=== PATIENT | female | born 1940 | race Caucasian/White ===

== ENCOUNTER 2017-07-11 21:01 | Emergency (ER) | payer OTHER ==
[~2017-07-11] VITALS: Ht 157.5 cm; Wt 82.2 kg
[2017-07-11 21:07] VITALS: TEMP 36.8; Ht 157.5 cm; Wt 82.2 kg
[2017-07-11] MEDS ORDERED: MULTTAB58 PO (21:13)
[2017-07-11] MEDS ORDERED: OXYCODONE/ACETAMINOPHEN 5-325 TAB PO STA (21:30)
[2017-07-11] MEDS ORDERED: IBUPROFEN 200 MG TAB PO STA (21:30)
--- NOTE | 2017-07-11 22:26 | EMERGENCY ROOM VISIT NOTE ---
History First contact with patient: 21:15 Chief Complaint: BACK PAIN Stated Complaint: LEFT BACK PAIN History of Present Illness The patient is a 76 year old female who presents to the Emergency Room with complaints of left posterior mid back pain that started when she woke up this morning. She describes it as a sharp, stabbing sensation that radiates into the armpit. She has tried icy hot, Tylenol and ibuprofen with minimal relief. She denies any shortness of breath. Coughing and sneezing make the pain worse. The pain is also worse with movement. She denies any numbness or tingling in her arms or legs. No abdominal pain. No urinary symptoms. Review of Systems 10 system review performed and negative unless noted in HPI or below Past Medical/Surgical History Hypertension Social History Smoking Status: Former Smoker Housing Status: lives with family Current/Historical Medications Scheduled Lidocaine (Lidocaine), 1 PATCH TD DAILY Multiple Vitamin (Multivitamin), 1 TAB PO DAILY Physical Exam Vital Signs Date Time Temp Pulse Resp B/P (MAP) Pulse Ox O2 Delivery O2 Flow Rate FiO2 07/12/17 00:48 75 18 150/79 94 07/12/17 00:16 70 21 92 07/12/17 00:00 127/63 07/11/17 23:46 69 22 135/76 90 07/11/17 23:45 71 18 154/74 92 Room Air 07/11/17 23:39 91 182/89 07/11/17 23:29 95 07/11/17 23:10 92 18 166/92 92 Room Air 07/11/17 21:07 36.8 101 20 203/94 95 Room Air Physical Exam GENERAL: 76-year-old female, in moderate discomfort,, SKIN: The skin was without rashes, erythema, edema, or bruising.. HEAD: Normocephalic atraumatic. NECK: . Cervical spine is nontender. HEART: Regular rate and rhythm without murmurs gallops or rubs. LUNGS: Clear to auscultation bilaterally without wheezes, rales or rhonchi. No accessory muscle use. THORAX: Tenderness to palpation over the left posterior lower ribs. No crepitus. ABDOMEN: Positive bowel sounds x 4.Soft, nontender, without organomegaly. No guarding or rebound tenderness. MUSCULOSKELETAL: No muscle atrophy, erythema, or edema noted. . Strength 5/5 throughout. NEURO: Patient was alert and oriented to person place and time. Normal sensation to touch. No focal neurological deficits. Medical Decision & Procedures ER Provider Diagnostic Interpretation: Thoracic spine x-rays IMPRESSION: No acute fracture or subluxation. The above report was generated using voice recognition software. It may contain grammatical, syntax or spelling errors. Electronically signed by: Rao Evans M.D. 07/11/2017 10:32 PM Rib x-rays IMPRESSION: 1. No acute process of the chest. 2. No acute displaced rib fracture or pneumothorax identified. The above report was generated using voice recognition software. It may contain grammatical, syntax or spelling errors. Electronically signed by: Rao Evans M.D. 07/11/2017 10:30 PM Dictated Date/Time: 07/11/2017 10:27 PM The status of this report is Signed. Draft = Not yet reviewed or approved by Radiologist. Signed = Reviewed and approved by Radiologist. Laboratory Results 07/11/17 23:32 Test 07/11/17 22:50 07/11/17 23:32 Urine Color YELLOW Urine Appearance CLOUDY (CLEAR) Urine pH 6.5 (4.5-7.5) Urine Specific [place] 1.023 (1.000-1.030) Urine Protein NEG (NEG) Urine Glucose (UA) NEG (NEG) Urine Ketones NEG (NEG) Urine Occult Blood NEG (NEG) Urine Nitrite NEG (NEG) Urine Bilirubin NEG (NEG) Urine Urobilinogen NEG (NEG) Urine Leukocyte Esterase MODERATE (NEG) Urine WBC (Auto) 10-30 /hpf (0-5) Urine RBC (Auto) 0-4 /hpf (0-4) Urine Hyaline Casts (Auto) 0 /lpf (0-5) Urine Epithelial Cells (Auto) >30 /lpf (0-5) Urine Bacteria (Auto) NEG (NEG) Anion Gap 7.0 mmol/L (3-11) Est Creatinine Clear Calc Drug Dose 52.0 ml/min Estimated GFR () 71.5 Estimated GFR (Non- 61.7 BUN/Creatinine Ratio 23.8 (10-20) Calcium Level 8.5 mg/dl (8.5-10.1) Total Bilirubin 0.5 mg/dl (0.2-1) Aspartate Amino Transf (AST/SGOT) 27 U/L (15-37) Alanine Aminotransferase (ALT/SGPT) 26 U/L (12-78) Alkaline Phosphatase 100 U/L (45-117) Troponin I < 0.015 ng/ml (0-0.045) Total Protein 7.5 gm/dl (6.4-8.2) Albumin 3.1 gm/dl (3.4-5.0) Globulin 4.4 gm/dl (2.5-4.0) Albumin/Globulin Ratio 0.7 (0.9-2) Medications Administered Medications (Trade) Dose Ordered Sig/Amparo Route Start Time Stop Time Status Last Admin Dose Admin Oxycodone/ Acetaminophen (Percocet 5-325mg Tab) 1 tab NOW STAT PO 07/11/17 21:30 07/11/17 21:40 DC 07/11/17 21:39 1 TAB Ibuprofen (Advil Tab) 400 mg NOW STAT PO 07/11/17 21:30 07/11/17 21:40 DC 07/11/17 21:39 400 MG Lidocaine (Lidoderm Patch 5%) 1 patch ONE STAT TD 07/11/17 22:39 07/11/17 22:41 DC 07/11/17 22:59 1 PATCH Metoprolol Tartrate (Lopressor Iv) 5 mg NOW STAT IV 07/11/17 23:34 07/11/17 23:35 DC 07/11/17 23:39 5 MG Sodium Chloride 500 ml @ 999 mls/hr Q31M STAT IV 07/12/17 00:15 07/12/17 00:45 DC 07/12/17 00:15 999 MLS/HR ECG Per My Interpretation Indication: other Rate (beats per minute): 98 Rhythm: normal sinus Comparison ECG Date: no prior available ED Course The patient was seen and examined She was medicated with 1 Percocet and ibuprofen 400 mg Imaging was performed and reviewed The patient was reassessed. She was more comfortable. Case was discussed with my supervising physician A saline lock was established, labs were drawn Patient was put on a monitor. An EKG was performed. The patient was given 1 dose of Lopressor as her blood pressure was elevated Upon reevaluation, she continues to rest comfortably. The pain has much improved. Her blood pressure was much improved, however the patient felt slightly dizzy. She was given 500 cc of normal saline. Upon reevaluation, she denies any dizziness or lightheadedness. Her pain continues to be improved. Blood pressure stable. We discussed her workup. She voiced understanding, was comfortable being discharged home. Discharge instructions were reviewed, and she was discharged in good condition Medical Decision Differential diagnosis: Rib fracture, rib contusion, pneumothorax, herpes zoster , radiculopathy, splenic injury, cardiac ischemia, pulmonary embolus, pneumonia This patient is a 76-year-old female that presents to the emergency department complaining of left posterior rib pain that started when she got up this morning. No known injury. On exam, she was exquisitely tender over the musculature inferior to her scapula. She did not have any rash to suggest herpes zoster. She did not have any tenderness in her upper abdomen to suggest splenic injury. X-rays did not reveal any rib fractures, pneumothorax or pneumonia. An EKG was performed. No acute ischemic findings were noted. The patient has significant relief with pain medication in the emergency department. I believe this pain is likely musculoskeletal. The patient recently relocated back to the area and is out of her blood pressure medication. The patient was treated with Lopressor in the emergency department. Her blood pressure significantly improved, however she felt slightly lightheaded. for this reason, she will not be given a prescription for any blood pressure medication. The patient was given some normal saline and felt much better. She will follow-up with a primary care physician this week for further evaluation of her pain and blood pressure. The patient had 10- 30 WBCs in her urine, however she did not have any symptoms. A urine culture was sent. I will hold off on antibiotics.. She will be given a short course of lidocaine patches. She and her daughter agree to return immediately to the emergency department with any new or concerning symptoms This chart was completed in part utilizing [employer] Speech Voice Recognition software. Attempts were made to minimize the grammatical errors, random word insertions, pronoun errors and incomplete sentences. Any formal questions or concerns about the content, text or information contained within the body of this dictation should be directly addressed to the provider for clarification. Blood Pressure Screening Patient's blood pressure: Elevated blood pressure Blood pressure disposition: Referred to PCP Impression Primary Impression: Back pain Departure Information Dispostion Home / Self-Care Condition GOOD Prescriptions Lidocaine (LIDOCAINE) 5 % Pad 1 PATCH TD DAILY for Pain, #1 PATCH Prov: Mignon Rausch PA-C 07/12/17 Referrals No Doctor, Assigned (PCP) Patient Instructions My [facility] Additional Instructions You have been evaluated in the emergency department for upper back pain. No significant abnormalities were noted on the x-rays or blood work. Your blood pressure was significantly elevated. Please follow-up with a primary care physician this week Ibuprofen 400 mg every 8 hours Please apply lidocaine patch to the area once daily as needed for pain. Please do not hesitate to return to the emergency department with any new, worsening or concerning symptoms It was a pleasure participating in your care today
--- NOTE | 2017-07-11 22:31 | DIAGNOSTIC IMAGING REPORT ---
L RIBS UNILATERAL WITH PA CHEST HISTORY: 76 years-old Female L posterior rib pain wrapping anteriorly acute left-sided rib pain status post trauma COMPARISON: Thoracic spine radiographs of same day TECHNIQUE: PA view of the chest with 5 views of the left ribs FINDINGS: Cardiomediastinal and hilar silhouettes are within normal limits. Atherosclerosis of the aorta. No pneumothorax, pleural effusion, focal airspace consolidation or overt pulmonary edema. Minimal subsegmental left basilar opacities suggest atelectasis. Degenerative changes of the shoulders and spine. Bones are mildly demineralized which limits evaluation for acute nondisplaced fracture. No acute displaced rib fracture is identified. IMPRESSION: 1. No acute process of the chest. 2. No acute displaced rib fracture or pneumothorax identified. The above report was generated using voice recognition software. It may contain grammatical, syntax or spelling errors. Electronically signed by: Rao Evans M.D. 07/11/2017 10:30 PM Dictated Date/Time: 07/11/2017 10:27 PM
--- NOTE | 2017-07-11 22:33 | DIAGNOSTIC IMAGING REPORT ---
THORACIC SPINE 3 VIEWS ROUTINE HISTORY: 76 years-old Female BACK PAIN acute mid thoracic spine pain COMPARISON: Chest and rib radiographs of same day TECHNIQUE: 3 views of the thoracic spine FINDINGS: The bones are mildly demineralized which limits evaluation for acute nondisplaced fracture. No acute fracture or subluxation. No compression deformity. Mild multilevel endplate spurring and intervertebral disc space narrowing. Atherosclerosis of the aorta. Imaged lung haddad appear clear. Mild levoscoliosis of the mid thoracic spine. Healed remote fracture of the posterior right sixth rib. IMPRESSION: No acute fracture or subluxation. The above report was generated using voice recognition software. It may contain grammatical, syntax or spelling errors. Electronically signed by: Rao Evans M.D. 07/11/2017 10:32 PM Dictated Date/Time: 07/11/2017 10:30 PM
[2017-07-11] MEDS ORDERED: LIDODERM (LIDOCAINE) PATCH 5% TD STA (22:39)
[2017-07-11] MEDS ORDERED: METOPROLOL TARTRATE 1 MG/ML VIAL IV STA (23:34)
[2017-07-12 00:01] LABS: ALBUMIN 3.1 gm/dl (3.4-5.0); ALT/SGPT 26 U/L (12-78); AST/SGOT 27 U/L (15-37); BLOOD UREA NITROGEN 21 mg/dl (7-18); CALCIUM 8.5 mg/dl (8.5-10.1); CARBON DIOXIDE 27 mmol/L (21-32); GLUCOSE 123 mg/dl (70-99); SODIUM 141 mmol/L (136-145)
[2017-07-12] MEDS ORDERED: LIDO1PAD2 TD (00:01)
[2017-07-12 00:06] LABS: ALKALINE PHOSPHATASE 100 U/L (45-117); TOTAL PROTEIN 7.5 gm/dl (6.4-8.2)
[2017-07-12] MEDS ORDERED: SODIUM CHLORIDE 0.9% 500ML 500 ML IV STA (00:15)
[2017-07-12 00:48] VITALS: BP 150/79; PULSE 75; O2SAT 94
--- NOTE | 2017-07-12 15:26 | Pharmacy Progress Note ---
ED Pharmacist Progress Note Date of Service: July 12, 2017. Received call from [facility] regarding prescription that was received for #1 Lidocaine Pad. Told them I would clarify with Mignon Rausch PA-C when she got in at 1500. Clarified with Mignon who wanted #14 5% lidocaine patches but said they could dispense #1 box if they could not be split up. Called [facility] back and clarified 5% lidocaine patches to dispense 14, unless box could not be broken then dispense 1 box. Pharmacy will dispense 1 box.
== END 2017-07-12 00:50 | disposition home or self-care (01) ==
LOC: C.EDB 21:04
DX: M54.9 Dorsalgia, unspecified (principal); I10 Essential (primary) hypertension; Z87.891 Personal history of nicotine dependence; Z79.899 Other long term (current) drug therapy

== ENCOUNTER 2017-10-22 17:10 | Emergency (ER) | payer OTHER ==
[~2017-10-22] VITALS: Ht 154.9 cm; Wt 79.2 kg
[~2017-10-22 17:10] MED LIST: LIDO1PAD2 TD; MULTTAB58 PO
[2017-10-22 17:13] VITALS: TEMP 36.9
[2017-10-22] MEDS ORDERED: HYDROCHLOROTHIAZIDE 25 MG TAB PO STA (17:51)
[2017-10-22] MEDS ORDERED: AMLODIPINE BESYLATE 5 MG TAB PO ONE (18:00)
[2017-10-22 18:20] VITALS: Ht 154.9 cm; Wt 79.2 kg
[2017-10-22] MEDS ORDERED: CHOL1000 PO (18:45)
[2017-10-22] MEDS ORDERED: MULT-730 PO (18:45)
[2017-10-22 18:53] LABS: BASO % 0.2 %; BASO ABS # 0.02 K/uL (0-0.2); EOS % 0.7 %; EOS ABS # 0.06 K/uL (0-0.5); HEMATOCRIT 47.1 % (37-47); HEMOGLOBIN 15.5 g/dL (12.0-16.0); IG# 0.03 K/uL (0.00-0.02); LYMPH % 16.8 %; LYMPH ABS # 1.47 K/uL (1.2-3.4); MEAN CELL VOLUME 86.6 fL (80-100); MEAN CORPUSCULAR HEMOGLOBIN 28.5 pg (25-34); MEAN CORPUSCULAR HGB CONC 32.9 g/dl (32-36); MEAN PLATELET VOLUME 10.1 fL (7.4-10.4); MONO % 8.1 %; MONO ABS # 0.71 K/uL (0.11-0.59); NEUT % 73.9 %; NEUT ABS # 6.45 K/uL (1.4-6.5); PLATELET COUNT 198 K/uL (130-400); RED CELL DISTRIBUTION WIDTH CV 13.4 % (11.5-14.5); RED CELL DISTRIBUTION WIDTH SD 42.2 fL (36.4-46.3); WHITE BLOOD COUNT 8.74 K/uL (4.8-10.8)
[2017-10-22 19:00] LABS: PTT PATIENT 25.7 SECONDS (21.0-31.0)
[2017-10-22 19:22] LABS: ALBUMIN 3.5 gm/dl (3.4-5.0); ALKALINE PHOSPHATASE 81 U/L (45-117); ALT/SGPT 29 U/L (12-78); AST/SGOT 33 U/L (15-37); BLOOD UREA NITROGEN 13 mg/dl (7-18); CALCIUM 9.6 mg/dl (8.5-10.1); CARBON DIOXIDE 28 mmol/L (21-32); CREATININE 0.91 mg/dl (0.60-1.20); GLUCOSE 97 mg/dl (70-99); POTASSIUM 4.1 mmol/L (3.5-5.1); SODIUM 137 mmol/L (136-145); TOTAL PROTEIN 8.8 gm/dl (6.4-8.2)
--- NOTE | 2017-10-22 19:43 | DIAGNOSTIC IMAGING REPORT ---
CHEST ONE VIEW PORTABLE CLINICAL HISTORY: EVALUATE ALTERED MENTAL STATUS/WEAKNESS COMPARISON STUDY: Chest radiograph July 11, 2017. FINDINGS: There is no pneumothorax or pleural effusion. Mild cardiomegaly is noted. There is no evidence for overt pulmonary edema. There is no consolidation to suggest pneumonia. The appearance of the chest is unchanged. Old right eighth rib fracture is noted. IMPRESSION: No acute cardiopulmonary findings. Electronically signed by: Vic Auguste M.D. 10/22/2017 7:42 PM Dictated Date/Time: 10/22/2017 7:41 PM
--- NOTE | 2017-10-22 19:50 | EMERGENCY ROOM VISIT NOTE ---
History Report prepared by Bren: Anusha Thakkar Under the Supervision of: Fely GiangO. First contact with patient: 17:46 Chief Complaint: HYPERTENSION Stated Complaint: HIGH BP History of Present Illness The patient is a 77 year old female who presents to the Emergency Room with complaints of an episode of hypertension that onset today. The patient notes that she went for a walk today and when she got home she noticed that her feet and legs were swollen. She notes that she elevated them to attempt to reduce the swelling. Per daughter, the patient's blood pressure at home was 198/104. The patient complains of an increase in urinary symptoms. The patient notes that she has a history of hypertension. The patient denies a history of diabetes , hyperlipidemia, and surgery. She notes that she has a family history of uterine cancer. The patient notes that she is a former smoker. Source of History: patient Onset: today Position: leg (bilateral) Quality: other (swelling) Timing: other (episode) Modifying Factors (Relieving): elevation Associated Symptoms: + urinary symptoms Note: The patient complains of swelling in her legs. Review of Systems See HPI for pertinent positives & negatives. A total of 10 systems reviewed and were otherwise negative. Past Medical & Surgical Medical Problems: (1) Hypertension Social History Smoking Status: Never Smoker Housing Status: lives with family Current/Historical Medications Scheduled Amlodipine (Norvasc), 10 MG PO DAILY Cholecalciferol (Vitamin D3), 1,000 INTER.UNIT PO DAILY Hydrochlorothiazide (Hctz), 1 TAB PO DAILY Multiple Vitamins W/ Minerals (Alive Womens 50+), 1 TAB PO DAILY Allergies Coded Allergies: No Known Allergies (Unverified , 07/11/17) Physical Exam Vital Signs Date Time Temp Pulse Resp B/P (MAP) Pulse Ox O2 Delivery O2 Flow Rate FiO2 10/22/17 20:31 83 19 144/80 92 Room Air 10/22/17 20:00 82 19 154/88 97 Nasal Cannula 2.0 10/22/17 19:30 81 20 162/85 97 Nasal Cannula 2.0 10/22/17 19:09 83 20 197/83 97 Nasal Cannula 2.0 10/22/17 18:00 84 20 92 Nasal Cannula 2.0 10/22/17 17:36 95 10/22/17 17:30 20 170/107 89 Room Air 10/22/17 17:13 36.9 106 18 188/90 95 Room Air Physical Exam GENERAL: Patient is awake, alert, and in no acute distress. Patient is resting comfortably and showing no signs of anxiety EYES: The conjunctivae are clear. The pupils are round and reactive. EARS, NOSE, MOUTH AND THROAT: The nose is without any evidence of any deformity. Mucous membranes are moist. Tongue is midline NECK: The neck is nontender and supple. RESPIRATORY: Normal respiratory effort is noted. There is no evidence of wheezing rhonchi or rales to auscultation. CARDIOVASCULAR: Regular rate and rhythm noted. There no murmurs rubs or gallops normal S1 normal S2 GASTROINTESTINAL: The abdomen is soft. Bowel sounds are present in all quadrants. Abdomen is nontender. MUSCULOSKELETAL/EXTREMITIES: There is no evidence of gross deformity. Full range of motion is noted in the hips and shoulders. SKIN: There is no obvious evidence of any rash. There are no petechiae, pallor or cyanosis noted. NEUROLOGIC: Patient is awake alert and oriented x3. Medical Decision & Procedures ER Provider Diagnostic Interpretation: Radiology results as stated below per my review and radiologist interpretation: CHEST ONE VIEW PORTABLE CLINICAL HISTORY: EVALUATE ALTERED MENTAL STATUS/WEAKNESS COMPARISON STUDY: Chest radiograph July 11, 2017. FINDINGS: There is no pneumothorax or pleural effusion. Mild cardiomegaly is noted. There is no evidence for overt pulmonary edema. There is no consolidation to suggest pneumonia. The appearance of the chest is unchanged. Old right eighth rib fracture is noted. IMPRESSION: No acute cardiopulmonary findings. Electronically signed by: Vic Auguste M.D. 10/22/2017 7:42 PM Dictated Date/Time: 10/22/2017 7:41 PM Laboratory Results 10/22/17 18:34 Red Blood Count 5.44, Mean Corpuscular Volume 86.6, Mean Corpuscular Hemoglobin 28.5, Mean Corpuscular Hemoglobin Concent 32.9, Mean Platelet Volume 10.1, Neutrophils (%) (Auto) 73.9, Lymphocytes (%) (Auto) 16.8, Monocytes (%) (Auto) 8.1, Eosinophils (%) (Auto) 0.7, Basophils (%) (Auto) 0.2, Neutrophils # (Auto) 6.45, Lymphocytes # (Auto) 1.47, Monocytes # (Auto) 0.71, Eosinophils # (Auto) 0.06, Basophils # (Auto) 0.02 10/22/17 18:31 Test 10/22/17 18:31 10/22/17 18:34 10/22/17 19:15 Anion Gap 8.0 mmol/L (3-11) Est Creatinine Clear Calc Drug Dose 48.5 ml/min Estimated GFR () 70.0 Estimated GFR (Non- 60.4 BUN/Creatinine Ratio 14.7 (10-20) Calcium Level 9.6 mg/dl (8.5-10.1) Magnesium Level 2.2 mg/dl (1.8-2.4) Total Bilirubin 0.6 mg/dl (0.2-1) Direct Bilirubin 0.1 mg/dl (0-0.2) Aspartate Amino Transf (AST/SGOT) 33 U/L (15-37) Alanine Aminotransferase (ALT/SGPT) 29 U/L (12-78) Alkaline Phosphatase 81 U/L (45-117) Troponin I < 0.015 ng/ml (0-0.045) Total Protein 8.8 gm/dl (6.4-8.2) Albumin 3.5 gm/dl (3.4-5.0) Thyroid Stimulating Hormone (TSH) 1.540 uIu/ml (0.300-4.500) White Blood Count 8.74 K/uL (4.8-10.8) Red Blood Count 5.44 M/uL (4.2-5.4) Hemoglobin 15.5 g/dL (12.0-16.0) Hematocrit 47.1 % (37-47) Mean Corpuscular Volume 86.6 fL (80-100) Mean Corpuscular Hemoglobin 28.5 pg (25-34) Mean Corpuscular Hemoglobin Concent 32.9 g/dl (32-36) Platelet Count 198 K/uL (130-400) Mean Platelet Volume 10.1 fL (7.4-10.4) Neutrophils (%) (Auto) 73.9 % Lymphocytes (%) (Auto) 16.8 % Monocytes (%) (Auto) 8.1 % Eosinophils (%) (Auto) 0.7 % Basophils (%) (Auto) 0.2 % Neutrophils # (Auto) 6.45 K/uL (1.4-6.5) Lymphocytes # (Auto) 1.47 K/uL (1.2-3.4) Monocytes # (Auto) 0.71 K/uL (0.11-0.59) Eosinophils # (Auto) 0.06 K/uL (0-0.5) Basophils # (Auto) 0.02 K/uL (0-0.2) RDW Standard Deviation 42.2 fL (36.4-46.3) RDW Coefficient of Variation 13.4 % (11.5-14.5) Immature Granulocyte % (Auto) 0.3 % Immature Granulocyte # (Auto) 0.03 K/uL (0.00-0.02) Prothrombin Time 10.1 SECONDS (9.0-12.0) Prothromb Time International Ratio 1.0 (0.9-1.1) Activated Partial Thromboplast Time 25.7 SECONDS (21.0-31.0) Partial Thromboplastin Ratio 1.0 Urine Color YELLOW Urine Appearance CLEAR (CLEAR) Urine pH 8.5 (4.5-7.5) Urine Specific [place] 1.009 (1.000-1.030) Urine Protein NEG (NEG) Urine Glucose (UA) NEG (NEG) Urine Ketones NEG (NEG) Urine Occult Blood NEG (NEG) Urine Nitrite NEG (NEG) Urine Bilirubin NEG (NEG) Urine Urobilinogen NEG (NEG) Urine Leukocyte Esterase SMALL (NEG) Urine WBC (Auto) 5-10 /hpf (0-5) Urine RBC (Auto) 0-4 /hpf (0-4) Urine Hyaline Casts (Auto) 0 /lpf (0-5) Urine Epithelial Cells (Auto) 0-5 /lpf (0-5) Urine Bacteria (Auto) NEG (NEG) Laboratory results per my review. Medications Administered Medications (Trade) Dose Ordered Sig/Amparo Route Start Time Stop Time Status Last Admin Dose Admin Amlodipine Besylate (Norvasc Tab) 10 mg NOW ONCE PO 10/22/17 18:00 10/22/17 18:01 DC 10/22/17 18:04 10 MG Hydrochlorothiazide (Hydrochlorothiazide Tab) 25 mg NOW STAT PO 10/22/17 17:51 10/22/17 17:53 DC 10/22/17 18:04 25 MG ECG Per My Interpretation Indication: other (hypertention) Rate (beats per minute): 94 Rhythm: normal sinus Findings: no ectopy, other (No ST Segment elevation) Change: no significant change Change: No significant change from 07/11/17. ED Course 1750: The patient was evaluated in room B9. A complete history and physical examination were performed. 2036: Upon reevaluation, the patient is resting comfortably. 2049: Upon reevaluation, the patient is resting comfortably. I discussed the results and treatment plan with her. She verbalized agreement of the treatment plan. She was discharged home. Medical Decision Prior records/ancillary studies reviewed regarding the history above. Triage Nursing notes reviewed. Additional history obtained from the family. The patient's history was concerning for hypertension. Differential diagnosis: Etiologies such as benign hypertension, hypertensive emergency, cardiovascular pathology, pheochromocytoma, electrolyte abnormality, renal disease, endorgan damage, as well as others were entertained. The patient is a 77-year-old female who presented to the emergency department for hypertension. The patient had asymptomatic hypertension but has been noticing that her blood pressure has been very elevated recently. The patient stopped taking her blood pressure medication in the past but wishes to restart her medications. She was treated with her previous medications that she was on as an outpatient. I discussed the patient's laboratory and radiographic studies with her. She does have a follow-up appointment with a primary care provider in the near future. She was encouraged to continue all medications as prescribed and follow-up with the primary care physician. I also recommended that she return to the emergency department immediately if symptoms change worsen or the need arises. I discussed patient's laboratory and radiographic studies with her. Medication Reconcilliation Current Medication List: was personally reviewed by me Blood Pressure Screening Patient's blood pressure: Normal blood pressure Impression Primary Impression: Hypertension Scribe Attestation The scribe's documentation has been prepared under my direction and personally reviewed by me in its entirety. I confirm that the note above accurately reflects all work, treatment, procedures, and medical decision making performed by me. Departure Information Dispostion Home / Self-Care Prescriptions Hydrochlorothiazide (HCTZ) 25 Mg Tab 1 TAB PO DAILY for 30 Days, #30 TAB Prov: Frank Lopez, DO 10/22/17 Amlodipine (Norvasc) 10 Mg Tab 10 MG PO DAILY, #30 TAB Prov: Frank Lopez, DO 10/22/17 Referrals No Doctor, Assigned (PCP) Forms HOME CARE DOCUMENTATION FORM, IMPORTANT VISIT INFORMATION, WORK / SCHOOL INSTRUCTIONS Patient Instructions My [facility] Additional Instructions Continue all medications as prescribed. Rest and avoid any strenuous activity. Follow-up with your family doctor as scheduled. Return the emergency department immediately if symptoms change worsen or the need arises.
[2017-10-22 20:31] VITALS: BP 144/80; PULSE 83; O2SAT 92
[2017-10-22] MEDS ORDERED: AMLO10TA3 PO (20:39)
[2017-10-22] MEDS ORDERED: HYDR25TA4 PO (20:39)
== END 2017-10-22 20:50 | disposition home or self-care (01) ==
LOC: C.EDB 17:11
DX: I10 Essential (primary) hypertension (principal)

== ENCOUNTER 2020-07-26 18:32 | Inpatient (IN) ==
[2020-07-26] MEDS ORDERED: SODIUM CHLORIDE 0.9% 1000ML 1,000 ML IV STA ×2 (18:52→19:05)
[2020-07-26] MEDS ORDERED: SODIUM CHLORIDE 0.9% 1000ML 500 ML IV ONE (19:05)
[2020-07-26] MEDS ORDERED: CALCIUM GLUCONATE 10% 10 ML VIAL IV STA (19:19)
[2020-07-26] MEDS ORDERED: DEXTROSE 50% 50 ML SYRINGE IV ONE (19:19)
[2020-07-26] MEDS ORDERED: NovoLIN-R INSULIN PER UNIT CHARGE IV STA (19:19)
[2020-07-26] MEDS ORDERED: SODIUM BICARB 8.4% INJ 50 MEQ/50 ML SYR IV STA (19:20)
--- NOTE | 2020-07-26 19:28 | Emergency Department Note ---
Impression & Plan KIANNA (acute kidney injury), Acute hyperkalemia, Acute dehydration, Cough ED Provider Note INFORMANT: Patient ED PROVIDER(S): Adan Dillard MD CHIEF COMPLAINT: Abnormal labs PLAN: Disposition: Admitted Condition: Good Outpatient prescription management: none Referral: None MEDICAL DECISION MAKING: Patient presented from the outpatient provider due to abnormal labs. She had hyperkalemia found on her blood work as well as KIANNA. She admits to not eating and drinking well. She has had a cough. She was hydrated with normal saline. Given the high potassium and KIANNA she also received calcium, insulin, dextrose and bicarbonate. Twelve-lead ECG showed sinus rhythm with mild peaked T morphology. Consultation was made with the [facility] service. Patient was evaluated in the ER admitted for further management. Triage Nursing notes reviewed and agree them. Vital Signs: reviewed and remarkable for no significant abnormalities Outpatient laboratory testing reviewed and she had hyperkalemia with a potassium of 6.2. She also was found to have acute kidney injury. Differential diagnosis: Infection, dehydration, metabolic abnormality, hypo/hyperglycemia, electrolyte disturbance, anemia, hypoxia, cardiac sources, intracerebral event, toxicologic, neurologic, as well as other pathologies. Diagnostics interpreted by me: ECG: Twelve-lead ECG reveals sinus rhythm at 98 bpm. Wandering baseline in V6. T wave morphology is slightly peaked but not tall. There is no ST elevation or depression. No PVCs. Normal QRS and axis. Cardiac Monitoring: Cardiac monitoring ordered by me: The patient was placed on continuous cardiac monitoring and observed. It revealed a normal sinus rhythm at 95 beats per minute without ectopy or evidence of dysrhythmia. Imaging studies: Chest x-ray. Findings: A chest x-ray was performed and revealed no pneumothorax, effusion, infiltrate, pulmonary edema, free air under the diaphragm, or wide mediastinum. Impression: No acute disease. HPI: The patient is a 80 year old female who presents to the Emergency Room with complaints of abnormal labs. This started today and was found at an urgent care appointment. She noted a cough. She was prescribed prednisone and a z-pack. Family notes she has had decreased PO intake. The patient also notes the following associated symptoms, weakness. Current pain is rated as 0/10. Pt denies LOC, headache, fevers, chills, diaphoresis, visual changes, neck pain, chest pain, breathing difficulties, nausea, vomiting, abdominal pain, back pain, melena, hematochezia, urinary symptoms, numbness, lymphadenopathy, rash, or other complaints. ROS: See above HPI for pertinent positives & negatives. A total of 10 systems reviewed and were otherwise negative. PAST MEDICAL HISTORY:See Below , HTN PAST SURGICAL HISTORY:See Below, FAMILY HISTORY:See Below SOCIAL HISTORY:See Below, retired, HOME MEDICATIONS:See Below ALLERGIES:See Below VITALS:See Below PHYSICAL EXAMINATION: GENERAL: Awake,tired-appearing, in no distress HENT: Normocephalic, atraumatic. Oropharynx unremarkable for dry mucous membranes. EYES: Normal conjunctiva. Sclera non-icteric. NECK: Inspection normal. Non-tender. Supple. No nuchal rigidity. FROM. No masses. RESPIRATORY: Clear to auscultation. No wheezes. No rales. Normal respiratory effort. CARDIAC: Normal rate. Normal rhythm. No murmurs. No rubs. Extremities warm and well perfused. Pulses equal. No JVD. GI: Soft, non-distended. No tenderness to palpation. No rebound or guarding. No masses. RECTAL: Deferred. MUSCULOSKELETAL: Atraumatic. Chest examination reveals no tenderness. There is no CVA tenderness to palpation. No joint edema. LOWER EXTREMITIES: Calves are equal size bilaterally and non-tender. No edema. No discoloration. NEURO: Normal sensorium. No sensory or motor deficits noted. SKIN: No rash or jaundice noted. Adan Dillard MD Past Med/Surg History Medical History Hyperlipidemia started pt on 10mg atorva s/p last BW Hypertension Obesity (BMI 30.0-34.9) Surgical History History of tonsillectomy History of wisdom tooth extraction Family History Brother Alcohol abuse Sister Hypertension Breast cancer Colorectal cancer Mother Ovarian cancer Denies family history of Prostate cancer Myocardial infarction Social History Smoking Status: Former smoker Tobacco Type: Cigarettes Hx Alcohol Use: Yes ("once in awhile") Alcohol type: wine and hard liquor Hx Substance Use: No Preferred Language: Somali Manager Water Required: No Beliefs That Will Affect Care: None marital status: Current Living Situation: Family Current Living Situation Comment: Lives with daughter current occupational status: retired Feels Safe at Home: Yes Safety Concerns: Feels Safe At This Time caffeine: Yes Dental Care, Regularly: No Physical Activity Frequency: 1-2 Times per Week Seatbelt Use: always Sunscreen Use: No Assistive Devices: Glasses Allergies Allergies Allergy/AdvReac Type Severity Reaction Status Date / Time No Known Allergies Allergy Unverified 07/26/20 19:32 Home Meds Home Medications Medication Instructions Recorded Confirmed cholecalciferol (vitamin D3) 25 1,000 units PO DAILY 01/02/19 07/26/20 mcg (1,000 unit) capsule multivitamin 1 tab PO DAILY 01/02/19 07/26/20 albuterol sulfate 2 puff INHALATION QID PRN 07/26/20 07/26/20 azithromycin 250 mg PO UD 07/26/20 07/26/20 fluticasone propion-salmeterol 1 ea INHALATION BID 07/26/20 07/26/20 hydrochlorothiazide 25 mg PO DAILY 07/26/20 07/26/20 prednisone 20 mg PO UD 07/26/20 07/26/20 Previous Rx's Medication Instructions Recorded lisinopril 20 mg tablet 20 mg PO DAILY #90 tab 02/19/20 Results & Data (ED) Vital Signs Vital Signs - 24 hr 07/26/20 18:34 07/26/20 19:11 07/26/20 19:13 Temperature 36.6 C Temperature Source Skin Pulse Rate 106 H 99 H 94 H Pulse Rate from SpO2 Sensor Respiratory Rate 20 23 18 Respiratory Effort / Characteristics Non-Labored Respiratory Depth Normal Blood Pressure 124/77 139/85 Blood Pressure Mean 92 103 Pulse Oximetry 91 95 95 Oxygen Delivery Method Room Air Room Air Room Air Sepsis Recent Fever Within 48 Hours No Sepsis New/Unexplained Change in Mental Status N/A Sepsis Action Taken by Nursing No Action Required 07/26/20 19:30 07/26/20 19:31 07/26/20 19:51 Temperature Temperature Source Pulse Rate 100 H 94 H 105 H Pulse Rate from SpO2 Sensor Respiratory Rate 20 20 20 Respiratory Effort / Characteristics Respiratory Depth Blood Pressure 143/66 H Blood Pressure Mean 91 Pulse Oximetry 94 94 94 Oxygen Delivery Method Room Air Room Air Room Air Sepsis Recent Fever Within 48 Hours Sepsis New/Unexplained Change in Mental Status Sepsis Action Taken by Nursing 07/26/20 20:00 07/26/20 20:01 07/26/20 20:51 Temperature Temperature Source Pulse Rate 103 H 103 H 103 H Pulse Rate from SpO2 Sensor 103 H 102 H 104 H Respiratory Rate 23 23 17 Respiratory Effort / Characteristics Respiratory Depth Blood Pressure 136/67 136/117 H Blood Pressure Mean 90 123 Pulse Oximetry 95 95 95 Oxygen Delivery Method Room Air Room Air Room Air Sepsis Recent Fever Within 48 Hours Sepsis New/Unexplained Change in Mental Status Sepsis Action Taken by Nursing 07/26/20 21:00 07/26/20 21:01 07/26/20 21:30 Temperature Temperature Source Pulse Rate 96 H 100 H 92 H Pulse Rate from SpO2 Sensor 99 H 98 H 95 H Respiratory Rate 20 22 13 Respiratory Effort / Characteristics Respiratory Depth Blood Pressure 136/99 143/76 H Blood Pressure Mean 111 98 Pulse Oximetry 93 94 92 Oxygen Delivery Method Room Air Room Air Room Air Sepsis Recent Fever Within 48 Hours Sepsis New/Unexplained Change in Mental Status Sepsis Action Taken by Nursing Laboratory Data Result diagrams: 07/26/20 19:09 07/26/20 22:32 Lab Results 07/26/20 07/26/20 07/26/20 Range/Units 19:09 19:09 19:09 WBC 7.24 (4.8-10.8) K/uL RBC 4.74 (4.2-5.4) M/uL Hgb 14.4 (12.0-16.0) g/dL Hct 41.4 (37-47) % MCV 87.3 (80-100) fL MCH 30.4 (25-34) pg MCHC 34.8 (32-36) g/dL RDW Std Deviation 44.1 (36.4-46.3) fL RDW Coeff of Ezio 14.1 (11.5-14.5) % Plt Count 369 (130-400) K/uL MPV 10.2 (7.4-10.4) fL Immature Gran % (Auto) 1.2 % Neut % (Auto) 92.0 % Lymph % (Auto) 4.4 % Dunn % (Auto) 2.3 % Eos % (Auto) 0.0 % Baso % (Auto) 0.1 % Neut # (Auto) 6.65 H (1.4-6.5) K/uL Lymph # (Auto) 0.32 L (1.2-3.4) K/uL Dunn # (Auto) 0.17 (0.11-0.59) K/uL Eos # (Auto) 0.00 (0-0.5) K/uL Baso # (Auto) 0.01 (0-0.2) K/uL Immature Gran # (Auto) 0.09 H (0.00-0.02) K/uL Sodium 135 L (136-145) mmol/L Potassium 6.2 H* (3.5-5.1) mmol/L Chloride 107 (98-107) mmol/L Carbon Dioxide 19 L (21-32) mmol/L Anion Gap 9.0 (3-11) BUN 113 H (7-18) mg/dl Creatinine 2.11 H (0.6-1.2) mg/dl Est Cr Clr Drug Dosing 19.4 ml/min Est GFR ( Amer) 24.8 ml/min Est GFR (Non-Af Amer) 21.4 ml/min BUN/Creatinine Ratio 53.6 H (10-20) Glucose 154 H (70-99) mg/dl POC Glucose (70-99) mg/dl Calcium 9.3 (8.5-10.1) mg/dl Total Bilirubin 0.7 (0.2-1) mg/dl AST 18 (15-37) U/L ALT 25 (12-78) U/L Alkaline Phosphatase 70 (45-117) U/L Total Protein 9.0 H (6.4-8.2) gm/dl Albumin 3.3 L (3.4-5.0) gm/dl Globulin 5.7 H (2.5-4.0) gm/dl Albumin/Globulin Ratio 0.6 L (0.9-2) Urine Color Dark Yellow Urine Appearance Cloudy A (Clear) Urine pH 5.0 (4.5-7.5) Ur Specific [place] 1.021 (1.000-1.030) Urine Protein Negative (Negative) Urine Glucose (UA) Negative (Negative) Urine Ketones Trace H (Negative) Urine Blood Negative (Negative) Urine Nitrite Negative (Negative) Urine Bilirubin Negative (Negative) Urine Urobilinogen Negative (Negative) Ur Leukocyte Esterase 2+ H (Negative) Urine WBC (Auto) >30 H (0-5) /hpf Urine RBC (Auto) 0-4 (0-4) /hpf U Hyaline Cast (Auto) >30 H (0-5) /lpf U Epithel Cells (Auto) >30 H (0-5) /lpf Urine Bacteria (Auto) Negative (Negative) Granular Casts 1-5 H (0) /lpf Ur Random Creatinine mg/dl Ur Random Sodium mmol/L Ur Random Urea Nitrogn mg/dl COVID-19 Eval Order SARS-CoV-2 (PCR) (Negative) 07/26/20 07/26/20 07/26/20 Range/Units 19:09 19:09 19:15 WBC (4.8-10.8) K/uL RBC (4.2-5.4) M/uL Hgb (12.0-16.0) g/dL Hct (37-47) % MCV (80-100) fL MCH (25-34) pg MCHC (32-36) g/dL RDW Std Deviation (36.4-46.3) fL RDW Coeff of Ezio (11.5-14.5) % Plt Count (130-400) K/uL MPV (7.4-10.4) fL Immature Gran % (Auto) % Neut % (Auto) % Lymph % (Auto) % Dunn % (Auto) % Eos % (Auto) % Baso % (Auto) % Neut # (Auto) (1.4-6.5) K/uL Lymph # (Auto) (1.2-3.4) K/uL Dunn # (Auto) (0.11-0.59) K/uL Eos # (Auto) (0-0.5) K/uL Baso # (Auto) (0-0.2) K/uL Immature Gran # (Auto) (0.00-0.02) K/uL Sodium (136-145) mmol/L Potassium (3.5-5.1) mmol/L Chloride (98-107) mmol/L Carbon Dioxide (21-32) mmol/L Anion Gap (3-11) BUN (7-18) mg/dl Creatinine (0.6-1.2) mg/dl Est Cr Clr Drug Dosing ml/min Est GFR ( Amer) ml/min Est GFR (Non-Af Amer) ml/min BUN/Creatinine Ratio (10-20) Glucose (70-99) mg/dl POC Glucose (70-99) mg/dl Calcium (8.5-10.1) mg/dl Total Bilirubin (0.2-1) mg/dl AST (15-37) U/L ALT (12-78) U/L Alkaline Phosphatase (45-117) U/L Total Protein (6.4-8.2) gm/dl Albumin (3.4-5.0) gm/dl Globulin (2.5-4.0) gm/dl Albumin/Globulin Ratio (0.9-2) Urine Color Urine Appearance (Clear) Urine pH (4.5-7.5) Ur Specific [place] (1.000-1.030) Urine Protein (Negative) Urine Glucose (UA) (Negative) Urine Ketones (Negative) Urine Blood (Negative) Urine Nitrite (Negative) Urine Bilirubin (Negative) Urine Urobilinogen (Negative) Ur Leukocyte Esterase (Negative) Urine WBC (Auto) (0-5) /hpf Urine RBC (Auto) (0-4) /hpf U Hyaline Cast (Auto) (0-5) /lpf U Epithel Cells (Auto) (0-5) /lpf Urine Bacteria (Auto) (Negative) Granular Casts (0) /lpf Ur Random Creatinine 254.0 mg/dl Ur Random Sodium 16 mmol/L Ur Random Urea Nitrogn 893 mg/dl COVID-19 Eval Order Covid19 at [facility] SARS-CoV-2 (PCR) (Negative) 07/26/20 07/26/20 Range/Units 19:15 20:48 WBC (4.8-10.8) K/uL RBC (4.2-5.4) M/uL Hgb (12.0-16.0) g/dL Hct (37-47) % MCV (80-100) fL MCH (25-34) pg MCHC (32-36) g/dL RDW Std Deviation (36.4-46.3) fL RDW Coeff of Ezio (11.5-14.5) % Plt Count (130-400) K/uL MPV (7.4-10.4) fL Immature Gran % (Auto) % Neut % (Auto) % Lymph % (Auto) % Dunn % (Auto) % Eos % (Auto) % Baso % (Auto) % Neut # (Auto) (1.4-6.5) K/uL Lymph # (Auto) (1.2-3.4) K/uL Dunn # (Auto) (0.11-0.59) K/uL Eos # (Auto) (0-0.5) K/uL Baso # (Auto) (0-0.2) K/uL Immature Gran # (Auto) (0.00-0.02) K/uL Sodium (136-145) mmol/L Potassium (3.5-5.1) mmol/L Chloride (98-107) mmol/L Carbon Dioxide (21-32) mmol/L Anion Gap (3-11) BUN (7-18) mg/dl Creatinine (0.6-1.2) mg/dl Est Cr Clr Drug Dosing ml/min Est GFR ( Amer) ml/min Est GFR (Non-Af Amer) ml/min BUN/Creatinine Ratio (10-20) Glucose (70-99) mg/dl POC Glucose 133 H (70-99) mg/dl Calcium (8.5-10.1) mg/dl Total Bilirubin (0.2-1) mg/dl AST (15-37) U/L ALT (12-78) U/L Alkaline Phosphatase (45-117) U/L Total Protein (6.4-8.2) gm/dl Albumin (3.4-5.0) gm/dl Globulin (2.5-4.0) gm/dl Albumin/Globulin Ratio (0.9-2) Urine Color Urine Appearance (Clear) Urine pH (4.5-7.5) Ur Specific [place] (1.000-1.030) Urine Protein (Negative) Urine Glucose (UA) (Negative) Urine Ketones (Negative) Urine Blood (Negative) Urine Nitrite (Negative) Urine Bilirubin (Negative) Urine Urobilinogen (Negative) Ur Leukocyte Esterase (Negative) Urine WBC (Auto) (0-5) /hpf Urine RBC (Auto) (0-4) /hpf U Hyaline Cast (Auto) (0-5) /lpf U Epithel Cells (Auto) (0-5) /lpf Urine Bacteria (Auto) (Negative) Granular Casts (0) /lpf Ur Random Creatinine mg/dl Ur Random Sodium mmol/L Ur Random Urea Nitrogn mg/dl COVID-19 Eval Order SARS-CoV-2 (PCR) NEGATIVE (Negative) Administered Medications Heparin Sodium (Porcine) (Heparin Sod 5,000 Unit/0.5 Ml Vial) 5,000 units SQ Q8 BILL Stop: 08/25/20 22:51 Last Admin: 07/26/20 23:48 Dose: 5,000 units Documented by: [id number] Sodium Chloride (Nss 1000ml) 1,000 mls @ 80 mls/hr IV .[id number] BILL Stop: 08/25/20 22:51 Last Admin: 07/26/20 23:22 Dose: 80 mls/hr Documented by: [id number] Discontinued Medications Calcium Gluconate (Calcium Gluconate 10% 10 Ml Vial) 1,000 mg IV NOW STA Stop: 07/26/20 19:20 Last Admin: 07/26/20 20:45 Dose: Not Given Documented by: [id number] Dextrose (Dextrose 50% 50 Ml Syringe) 25 ml IV NOW ONE Stop: 07/26/20 19:20 Last Admin: 07/26/20 19:41 Dose: 25 ml Documented by: [id number] Sodium Chloride (Nss 1000ml) 1,000 mls @ 125 mls/hr IV .Q8H STA Stop: 07/27/20 02:51 Last Admin: 07/26/20 19:21 Dose: Not Given Documented by: [id number] Sodium Chloride (Nss 1000ml) 500 mls @ 999 mls/hr IV .Q31M ONE Stop: 07/26/20 19:35 Last Infusion: 07/26/20 19:51 Dose: 0 mls/hr Documented by: [id number] Admin: 07/26/20 19:21 Dose: 999 mls/hr Documented by: [id number] Sodium Chloride (Nss 1000ml) 1,000 mls @ 125 mls/hr IV .Q8H STA Stop: 07/27/20 03:04 Last Infusion: 07/26/20 23:41 Dose: 0 mls/hr Documented by: [id number] Admin: 07/26/20 19:50 Dose: 125 mls/hr Documented by: [id number] Calcium Gluconate 1,000 mg/ (Sodium Chloride) 60 mls @ 240 mls/hr IV NOW STA Stop: 07/26/20 20:40 Last Infusion: 07/26/20 21:00 Dose: 0 mls/hr Documented by: [id number] Admin: 07/26/20 20:44 Dose: 240 mls/hr Documented by: [id number] Insulin Human Regular (Novolin-R Insulin Per Unit Charge) 5 units IV NOW STA Stop: 07/26/20 19:20 Last Admin: 07/26/20 19:41 Dose: 5 units Documented by: [id number] Cosigned by: [id number] Methylprednisolone (Methylprednisolone 125 Mg/2 Ml Vial) 40 mg IV NOW STA Stop: 07/26/20 22:58 Last Admin: 07/26/20 23:48 Dose: 40 mg Documented by: [id number] Sodium Bicarbonate (Sodium Bicarb 8.4% Inj 50 Meq/50 Ml Syr) 50 meq IV NOW STA Stop: 07/26/20 19:21 Last Admin: 07/26/20 19:42 Dose: 50 meq Documented by: [id number] Imaging Data Radiologist's Impression: Chest X-Ray 07/26/20 19:18 XR chest 1V portable HISTORY: cough COMPARISON: Chest 10/22/2017. FINDINGS: Mild interstitial thickening at the lung bases, unchanged. This is likely chronic. No new focal lung consolidations to suggest pneumonia. No evidence for pulmonary edema. Suspect mild emphysema. The heart is normal in size. There are old, healed right-sided rib fractures. No pleural effusions. No pneumothorax. IMPRESSION: No significant change compared to the prior study. No acute process. ACT 112: Negative or not required by law. Electronically signed by: Young Schulte M.D. 07/26/2020 7:47 PM Abdomen/Pelvis CT 07/26/20 19:[address] WITHOUT CONTRAST CT DOSE: 470.11 mGy.cm HISTORY: Acute kidney injury. TECHNIQUE: Multiaxial CT images of the abdomen and pelvis were performed without contrast. A dose lowering technique was utilized adhering to the principles of ALARA. COMPARISON STUDY: None. FINDINGS: There is a 2.2 cm bleb at the right lung base. No pneumoperitoneum. No pneumatosis. No suspicious lytic or blastic osseous lesions. There is a 4 cm duodenal diverticulum. There are few punctate gallstones. No gallbladder wall thickening. The liver demonstrates a subcentimeter hypodense lesion centrally. This is technically too small to characterize. The unenhanced spleen, adrenal glands, and pancreas are unremarkable. Moderate calcified plaque within the abdominal aorta. 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 There is a 3 mm nonobstructing stone within the upper pole of the right kidney. No left renal calculi. No ureteral calculi. No hydronephrosis. The bladder is unremarkable. There is a bilobed 8 cm hypodense lesion within the upper pole the left kidney and a 1 cm hypodense lesion within the upper pole the right kidney. These are incompletely characterized on this noncontrast study but statistically represent cysts. The uterus and right adnexa are within normal limits. There is a 7.8 cm cystic lesion within the left ovary. This appears to contain a thin septation a few punctate calcifications. This is indeterminate but is considered pathologic in a postmenopausal female and could represent an ovarian neoplasm. There is suboptimal evaluation for bowel pathology due to the lack of intravenous and oral contrast. However, there is no definite bowel wall thickening or obstruction. Normal appendix. Colonic diverticulosis. No evidence for acute diverticulitis. IMPRESSION: 1. Right-sided nephrolithiasis. No ureteral stones. No hydronephrosis. 2. No definite bowel wall thickening or obstruction. 3. Colonic diverticulosis. 4. A 7.8 cm left ovarian cystic lesion. This contains a thin septation and a few punctate calcifications. This is nonspecific but could be pathologic in a postmenopausal female. Follow-up nonemergent gynecologic consultation recommended to exclude the possibility of an ovarian neoplasm. 5. Cholelithiasis. No gallbladder wall thickening. ACT 112: Negative or not required by law. Electronically signed by: Young Schulte M.D. 07/26/2020 8:49 PM Discharge Plan Visit Data Chief Complaint: Abnormal Labs/Diagnostic Testing Stated Complaint: POTASSIUM TOO HIGH, ABNORMAL LAB ED Provider: Adan Dillard Discharge Problem: KIANNA (acute kidney injury), Acute hyperkalemia, Acute dehydration, Cough Patient Disposition: Admitted As Inpatient Discharge Instructions Interventions: ED Discharge Assessment Last Done: 07/26/20 22:28
[2020-07-26 19:47] LABS: Appearance Urine Cloudy (Clear); Bacteria Urine Automated Negative (Negative); Bilirubin Urine Negative (Negative); Blood Urine Negative (Negative); Color Urine Dark Yellow; Epithelial Cell Urine Auto >30 /lpf (0-5); Glucose Urine UA Negative (Negative); Ketones Urine Trace (Negative); Leukocyte Esterase Urine 2+ (Negative); Nitrite Urine Negative (Negative); Protein Urine Negative (Negative); RBC Urine Automated 0-4 /hpf (0-4); Specific Gravity Urine 1.021 (1.000-1.030); Urobilinogen Urine Negative (Negative); WBC Urine Automated >30 /hpf (0-5)
--- NOTE | 2020-07-26 19:48 | XRay Report ---
XR chest 1V portable HISTORY: cough COMPARISON: Chest 10/22/2017. FINDINGS: Mild interstitial thickening at the lung bases, unchanged. This is likely chronic. No new f ocal lung consolidations to suggest pneumonia. No evidence for pulmonary edema. Suspect mild emphysem a. The heart is normal in size. There are old, healed right-sided rib fractures. No pleural effusions . No pneumothorax. IMPRESSION: No significant change compared to the prior study. No acute process. ACT 112: Negative or not required by law. Electronically signed by: Young Schulte M.D. 07/26/2020 7:47 PM
[2020-07-26 20:13] LABS: Albumin Globulin Ratio 0.6 (0.9-2); Albumin Level 3.3 gm/dl (3.4-5.0); BUN Creatinine Ratio 53.6 (10-20); Bilirubin,Total 0.7 mg/dl (0.2-1); Calcium 9.3 mg/dl (8.5-10.1); Creatinine Clr Calc Pharmacy 19.4 ml/min; Est GFR (African American) 24.8 ml/min; Est GFR (Non-African American) 21.4 ml/min; Globulin 5.7 gm/dl (2.5-4.0); Potassium 6.2 mmol/L (3.5-5.1)
--- NOTE | 2020-07-26 20:15 | History & Physical Report ---
Date of Service July 26, 2020 Assessment & Plan (1) Person under investigation for COVID-19: As per HPI - Isolate per COVID precautions, retest as applicable (2) COPD (chronic obstructive pulmonary disease): COPD vs. Asthma/allergic - WBC 7, increase in sputum production, increase in dyspnea, no opacities or effusions - Continue Azithromycin 250 mg daily- She already took her 500 dose today - Methylpred- 40mg q6- if patient dyspnea or hypoxia gets worse can increase - Albuterol/Combivent nebs scheduled q6 for 24 hours - Albuterol inhalers PRN- she may need spacer- reports difficulty in using her inhaler secondary to seal with no upper teeth (3) Acute hyperkalemia: Potassium at 6.2 - ECG with very mild t-wave change - NS 1 liter in the EMD - 5 units regular insulin and D50%, calcium gluconate IV, Sodium Bicarb given in the EMD - Patient is making urine so with IV fluids she will diurese more- BMP now to check K She is not diabetic- however will continue to check glucose ACHS notify if > 160 Controlling glucose will also move her K intracellularly. A1C in morning (4) KIANNA (acute kidney injury): KIANNA likely pre-renal secondary to decreased oral intake- BUN 113, DRAG SAWYER 2.11 (baseline DRAG SAWYER 0.9-1.15) - JERSON, UUN, and UUC pending - Urine with contaminant appearance- will resend clean catch on next sample - Hold lisinopril and HCTZ- patient already took this morning - FEUREA 6.5% (5) Hypertension: As above- if urine indices improve following hydration can resume - IV labetalol if needed overnight (6) Kidney stone: Incidental finding on abomen CT scan- non-obstucting 3mm right stone - asymptomatic at this time - follow (7) Ovarian cyst: incidental finding at 7.8 cm - follow up on outpatient (8) Cholelithiasis: incidental finding on CT scan, no pain asymptomatic History of Present Illness Primary Care Provider: Nicolette Childs MD 80 YOF, comes to the emergency room today after going to urgent care today for cough, back, pain and feeling ill. Patient has a past medical history of COPD(no PFT's on file) but previous smoker, HTN. As above she was seen at [facility] today and started on Azithromycin and prednisone and given Advair inhaler. She was noted at this time to have elevated potassium and acute kidney injury. For her cough, she has had this since end of June and her mucous is thick white and occasional yellow. Her is admitted for COVID-19 and is on day 13 of his illness, they stay in different areas of the house, they also live with their daughter and her and they have reportedly tested negative. She will be admitted for IV hydration for her renal function and potassium, follow her respiratory illness. Will place as PUI. She had a test performed at urgent care today as well. Allergies Allergy/AdvReac Type Severity Reaction Status Date / Time No Known Allergies Allergy Unverified 07/26/20 19:32 Home Medications Medication Instructions Recorded Confirmed Type cholecalciferol (vitamin D3) 25 1,000 units PO DAILY 01/02/19 07/26/20 History mcg (1,000 unit) capsule multivitamin 1 tab PO DAILY 01/02/19 07/26/20 History lisinopril 20 mg tablet 20 mg PO DAILY #90 tab 02/19/20 07/26/20 Rx albuterol sulfate 2 puff INHALATION QID PRN 07/26/20 07/26/20 History azithromycin 250 mg PO UD 07/26/20 07/26/20 History fluticasone propion-salmeterol 1 ea INHALATION BID 07/26/20 07/26/20 History hydrochlorothiazide 25 mg PO DAILY 07/26/20 07/26/20 History prednisone 20 mg PO UD 07/26/20 07/26/20 History Past Med/Surg History Medical History Hyperlipidemia started pt on 10mg atorva s/p last BW Hypertension Obesity (BMI 30.0-34.9) Surgical History History of tonsillectomy History of wisdom tooth extraction Family History Brother Alcohol abuse Sister Hypertension Breast cancer Colorectal cancer Mother Ovarian cancer Denies family history of Prostate cancer Myocardial infarction Social History Smoking Status: Former smoker Tobacco Type: Cigarettes Hx Alcohol Use: Yes ("once in awhile") Alcohol type: wine and hard liquor Hx Substance Use: No Preferred Language: [employer] [employer] Required: No Beliefs That Will Affect Care: None marital status: Current Living Situation: Family Current Living Situation Comment: Lives with daughter current occupational status: retired Feels Safe at Home: Yes Safety Concerns: Feels Safe At This Time caffeine: Yes Dental Care, Regularly: No Physical Activity Frequency: 1-2 Times per Week Seatbelt Use: always Sunscreen Use: No Assistive Devices: None Review of Systems Review of Systems: REVIEW OF SYSTEMS: Constitutional: No fever, sweats or chills Eyes: No diplopia, no worsening or blurred vision ENT: normal hearing, no trouble swallowing Respiratory: (+) cough, sputum, on exertion, NO dyspnea at rest Cardiovascular: No chest pain, tightness or palpitations Abdomen: (+) decreased appetitie, pain, nausea, vomiting, diarrhea or constipation Musculoskeletal: No joint pain, calf pain, swelling Neurologic: No weakness, numbness/tingling, or balance problems Psychiatric: No anxiety or depression Skin: No rash or itch Physical Exam Physical Exam: PHYSICAL EXAM: General: awake, alert, no apparent distress Head: Normocephalic, atraumatic ENT: PERRL, EOMI, no pharyngeal exudate, mucous membranes dry Neuro: AAO x 3, speech clear and appropriate, strength intact bilaterally 5/5, sensation intact and equal all extremities and dermatomes, no pronator drift Chest: equal rise and fall of the chest, no accessory muscle use, no heaves or thrills, diminished breath sounds with scattered rhonchi, on room air, Cardiac: Regular rate and rhythm, telemetry reviewed, skin warm dry, cap refill <3 seconds, peripheral pulses +2 no JVD, no murmur, no edema GI: NABS x 4 quadrants, soft, nontender to palpation, no rebound, guarding or tenderness : Spontaneously voiding, no pain, no CVA tenderness Extremities: Normal inspection, no peripheral edema or erythema, calfs nontender to palpation Psych: Normal mood and affect Skin: no rash or erythema Results & Data Results & Data ([facility]) Vital Signs (Past 12 Hours) Vital Signs Temp Pulse Resp BP Pulse Ox 05/21/21 19:51 105 H 20 94 05/21/21 19:31 94 H 20 94 07/26/20 19:30 100 H 20 143/66 H 94 07/26/20 19:13 94 H 18 95 07/26/20 19:11 99 H 23 139/85 95 07/26/20 18:34 36.6 C 106 H 20 124/77 91 Laboratory Results Abnormal lab results 07/26/20 07/26/20 07/26/20 Range/Units 19:09 19:09 19:09 Neut # (Auto) 6.65 H (1.4-6.5) K/uL Lymph # (Auto) 0.32 L (1.2-3.4) K/uL Immature Gran # (Auto) 0.09 H (0.00-0.02) K/uL Sodium 135 L (136-145) mmol/L Potassium 6.2 H* (3.5-5.1) mmol/L Carbon Dioxide 19 L (21-32) mmol/L BUN 113 H (7-18) mg/dl Creatinine 2.11 H (0.6-1.2) mg/dl BUN/Creatinine Ratio 53.6 H (10-20) Glucose 154 H (70-99) mg/dl POC Glucose (70-99) mg/dl Total Protein 9.0 H (6.4-8.2) gm/dl Albumin 3.3 L (3.4-5.0) gm/dl Globulin 5.7 H (2.5-4.0) gm/dl Albumin/Globulin Ratio 0.6 L (0.9-2) Urine Appearance Cloudy A (Clear) Urine Ketones Trace H (Negative) Ur Leukocyte Esterase 2+ H (Negative) Urine WBC (Auto) >30 H (0-5) /hpf U Hyaline Cast (Auto) >30 H (0-5) /lpf U Epithel Cells (Auto) >30 H (0-5) /lpf Granular Casts 1-5 H (0) /lpf 07/26/20 Range/Units 20:48 Neut # (Auto) (1.4-6.5) K/uL Lymph # (Auto) (1.2-3.4) K/uL Immature Gran # (Auto) (0.00-0.02) K/uL Sodium (136-145) mmol/L Potassium (3.5-5.1) mmol/L Carbon Dioxide (21-32) mmol/L BUN (7-18) mg/dl Creatinine (0.6-1.2) mg/dl BUN/Creatinine Ratio (10-20) Glucose (70-99) mg/dl POC Glucose 133 H (70-99) mg/dl Total Protein (6.4-8.2) gm/dl Albumin (3.4-5.0) gm/dl Globulin (2.5-4.0) gm/dl Albumin/Globulin Ratio (0.9-2) Urine Appearance (Clear) Urine Ketones (Negative) Ur Leukocyte Esterase (Negative) Urine WBC (Auto) (0-5) /hpf U Hyaline Cast (Auto) (0-5) /lpf U Epithel Cells (Auto) (0-5) /lpf Granular Casts (0) /lpf Diagnostic Findings Chest X-Ray 07/26/20 19:18 XR chest 1V portable HISTORY: cough COMPARISON: Chest 10/22/2017. FINDINGS: Mild interstitial thickening at the lung bases, unchanged. This is likely chronic. No new focal lung consolidations to suggest pneumonia. No evidence for pulmonary edema. Suspect mild emphysema. The heart is normal in size. There are old, healed right-sided rib fractures. No pleural effusions. No pneumothorax. IMPRESSION: No significant change compared to the prior study. No acute process. ACT 112: Negative or not required by law. Electronically signed by: Young Schulte M.D. 07/26/2020 7:47 PM Abdomen/Pelvis CT 07/26/20 19:[address] WITHOUT CONTRAST CT DOSE: 470.11 mGy.cm HISTORY: Acute kidney injury. TECHNIQUE: Multiaxial CT images of the abdomen and pelvis were performed without contrast. A dose lowering technique was utilized adhering to the principles of ALARA. COMPARISON STUDY: None. FINDINGS: There is a 2.2 cm bleb at the right lung base. No pneumoperitoneum. No pneumatosis. No suspicious lytic or blastic osseous lesions. There is a 4 cm duodenal diverticulum. There are few punctate gallstones. No gallbladder wall thickening. The liver demonstrates a subcentimeter hypodense lesion centrally. This is technically too small to characterize. The unenhanced spleen, adrenal glands, and pancreas are unremarkable. Moderate calcified plaque within the abdominal aorta. 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 There is a 3 mm nonobstructing stone within the upper pole of the right kidney. No left renal calculi. No ureteral calculi. No hydronephrosis. The bladder is unremarkable. There is a bilobed 8 cm hypodense lesion within the upper pole the left kidney and a 1 cm hypodense lesion within the upper pole the right kidney. These are incompletely characterized on this noncontrast study but statistically represent cysts. The uterus and right adnexa are within normal limits. There is a 7.8 cm cystic lesion within the left ovary. This appears to contain a thin septation a few punctate calcifications. This is indeterminate but is considered pathologic in a postmenopausal female and could represent an ovarian neoplasm. There is suboptimal evaluation for bowel pathology due to the lack of intravenous and oral contrast. However, there is no definite bowel wall thickening or obstruction. Normal appendix. Colonic diverticulosis. No evidence for acute diverticulitis. IMPRESSION: 1. Right-sided nephrolithiasis. No ureteral stones. No hydronephrosis. 2. No definite bowel wall thickening or obstruction. 3. Colonic diverticulosis. 4. A 7.8 cm left ovarian cystic lesion. This contains a thin septation and a few punctate calcifications. This is nonspecific but could be pathologic in a postmenopausal female. Follow-up nonemergent gynecologic consultation recommend ed to exclude the possibility of an ovarian neoplasm. 5. Cholelithiasis. No gallbladder wall thickening. Electronically signed by: Young Schulte M.D. 07/26/2020 8:49 PM Medications Administered Sodium Chloride (Nss 1000ml) 1,000 mls @ 125 mls/hr IV .Q8H STA Stop: 07/27/20 02:51 Last Admin: 07/26/20 19:21 Dose: Not Given Documented by: [id number] Sodium Chloride (Nss 1000ml) 1,000 mls @ 125 mls/hr IV .Q8H STA Stop: 07/27/20 03:04 Last Admin: 07/26/20 19:50 Dose: 125 mls/hr Documented by: [id number] Discontinued Medications Calcium Gluconate (Calcium Gluconate 10% 10 Ml Vial) 1,000 mg IV NOW STA Stop: 07/26/20 19:20 Last Admin: 07/26/20 20:45 Dose: Not Given Documented by: [id number] Dextrose (Dextrose 50% 50 Ml Syringe) 25 ml IV NOW ONE Stop: 07/26/20 19:20 Last Admin: 07/26/20 19:41 Dose: 25 ml Documented by: [id number] Sodium Chloride (Nss 1000ml) 500 mls @ 999 mls/hr IV .Q31M ONE Stop: 07/26/20 19:35 Last Infusion: 07/26/20 19:51 Dose: 0 mls/hr Documented by: [id number] Admin: 07/26/20 19:21 Dose: 999 mls/hr Documented by: [id number] Calcium Gluconate 1,000 mg/ (Sodium Chloride) 60 mls @ 240 mls/hr IV NOW STA Stop: 07/26/20 20:40 Last Infusion: 07/26/20 21:00 Dose: 0 mls/hr Documented by: [id number] Admin: 07/26/20 20:44 Dose: 240 mls/hr Documented by: [id number] Insulin Human Regular (Novolin-R Insulin Per Unit Charge) 5 units IV NOW STA Stop: 07/26/20 19:20 Last Admin: 07/26/20 19:41 Dose: 5 units Documented by: [id number] Cosigned by: [id number] Sodium Bicarbonate (Sodium Bicarb 8.4% Inj 50 Meq/50 Ml Syr) 50 meq IV NOW STA Stop: 07/26/20 19:21 Last Admin: 07/26/20 19:42 Dose: 50 meq Documented by: [id number] ECG Additional Comments: Sinus rhythm with occasional Premature ventricular complexes Otherwise normal ECG When compared with ECG of 22-OCT-2017 18:10, Code Status & VTE Plan Code Status CODE: FULL VTE: SCD's, Heparin VTE Prophylaxis Plan VTE Prophylaxis will be ordered: Yes Supervising Physician Co-Signing Physician Notes Attending addendum: I have physically seen this patient, have supervised the JHOAN's activities, and agree with the H&P unless as otherwise noted. Assessment and Plan: COPD exacerbation/possible COVID-19 infection- Duonebs every 6 hours while awake and every 2 hours when necessary. Methylprednisolone 40 mg IV every 6 hours Guaifenesin extended release 6 on milligrams p.o. twice daily Vitamin D 5000 international units p.o. daily Zinc sulfate turn 20 mg p.o. daily Repeat COVID-19 testing in a.m. in a.m., isolate for now Acute kidney injury/hyperkalemia- Creatinine 2.08, with baseline 0.9-1.15 Insulin with D50 as noted, calcium gluconate 1 g IV inserted bicarbonate given in the ED Continue with IV fluids. Recheck laboratories in a.m. Remaining orders and notations as noted PG Care Time/CCT Total # of Minutes Spent Total Time Spent with Patient: Total time spent is greater than 50% in coordination of care (as documented) at patient's floor/unit and/or counseling patient: Coding Level of Care Code 57377 Initial Inpt Care Lvl 3 Diagnoses Person under investigation for COVID-19 Z20.822 COPD (chronic obstructive pulmonary disease) J44.9 COPD type: unspecified COPD Acute hyperkalemia E87.5 KIANNA (acute kidney injury) N17.9 Hypertension I10 Hypertension type: essential hypertension Kidney stone N20.0 Ovarian cyst N83.209 Laterality: unspecified laterality Cholelithiasis K80.80 Biliary obstruction: without biliary obstruction Cholelithiasis location: other site (1) Ovarian cyst Laterality: unspecified laterality Qualified Code(s): N83.209 - Unspecified ovarian cyst, unspecified side (2) COPD (chronic obstructive pulmonary disease) COPD type: unspecified COPD Qualified Code(s): J44.9 - Chronic obstructive pulmonary disease, unspecified (3) Hypertension Hypertension type: essential hypertension Qualified Code(s): I10 - Essential (primary) hypertension (4) Cholelithiasis Biliary obstruction: without biliary obstruction Cholelithiasis location: other site Qualified Code(s): K80.80 - Other cholelithiasis without obstruction
[2020-07-26] MEDS ORDERED: CALCIUM GLUCONATE 10% 1,000 MG in SODIUM CHLORIDE 0.9% 50 ML IV STA (20:26)
[2020-07-26 20:41] LABS: Cast Urine Automated >30 /lpf (0-5)
--- NOTE | 2020-07-26 20:50 | CT Scan Report ---
ABDOMEN AND PELVIS CT WITHOUT CONTRAST CT DOSE: 470.11 mGy.cm HISTORY: Acute kidney injury. TECHNIQUE: Multiaxial CT images of the abdomen and pelvis were performed without contrast. A dose lo wering technique was utilized adhering to the principles of ALARA. COMPARISON STUDY: None. FINDINGS: There is a 2.2 cm bleb at the right lung base. No pneumoperitoneum. No pneumatosis. No susp icious lytic or blastic osseous lesions. There is a 4 cm duodenal diverticulum. There are few punctat e gallstones. No gallbladder wall thickening. The liver demonstrates a subcentimeter hypodense lesion centrally. This is technically too small to characterize. The unenhanced spleen, adrenal glands, and pancreas are unremarkable. Moderate calcified plaque within the abdominal aorta. Focal aneurysmal di latation at the infrarenal abdominal aorta on image 106 measuring 3 cm. There is a 3 mm nonobstructin g stone within the upper pole of the right kidney. No left renal calculi. No ureteral calculi. No hyd ronephrosis. The bladder is unremarkable. There is a bilobed 8 cm hypodense lesion within the upper p ole the left kidney and a 1 cm hypodense lesion within the upper pole the right kidney. These are inc ompletely characterized on this noncontrast study but statistically represent cysts. The uterus and r ight adnexa are within normal limits. There is a 7.8 cm cystic lesion within the left ovary. This andry ears to contain a thin septation a few punctate calcifications. This is indeterminate but is consider ed pathologic in a postmenopausal female and could represent an ovarian neoplasm. There is suboptimal evaluation for bowel pathology due to the lack of intravenous and oral contrast. However, there is n o definite bowel wall thickening or obstruction. Normal appendix. Colonic diverticulosis. No evidence for acute diverticulitis. IMPRESSION: 1. Right-sided nephrolithiasis. No ureteral stones. No hydronephrosis. 2. No definite bowel wall thickening or obstruction. 3. Colonic diverticulosis. 4. A 7.8 cm left ovarian cystic lesion. This contains a thin septation and a few punctate calcificati ons. This is nonspecific but could be pathologic in a postmenopausal female. Follow-up nonemergent gy necologic consultation recommended to exclude the possibility of an ovarian neoplasm. 5. Cholelithiasis. No gallbladder wall thickening. ACT 112: Negative or not required by law. Electronically signed by: Young Schulte M.D. 07/26/2020 8:49 PM
[2020-07-26 21:18] LABS: Basophils # (auto) 0.01 K/uL (0-0.2); Basophils % (auto) 0.1 %; Hematocrit (blood only) 41.4 % (37-47); Hemoglobin 14.4 g/dL (12.0-16.0); Immature Granulocytes # (auto) 0.09 K/uL (0.00-0.02); Immature Granulocytes % (auto) 1.2 %; Lymphocytes # (auto) 0.32 K/uL (1.2-3.4); Lymphocytes % (auto) 4.4 %; Mean Corpuscular Hemoglobin 30.4 pg (25-34); Mean Corpuscular Hgb Conc 34.8 g/dL (32-36); Mean Corpuscular Volume 87.3 fL (80-100); Mean Platelet Volume 10.2 fL (7.4-10.4); Monocytes # (auto) 0.17 K/uL (0.11-0.59); Monocytes % (auto) 2.3 %; Neutrophils # (auto) 6.65 K/uL (1.4-6.5); Platelet Count 369 K/uL (130-400); RDW Coefficient of Variation 14.1 % (11.5-14.5); RDW Standard Deviation 44.1 fL (36.4-46.3); Red Blood Count 4.74 M/uL (4.2-5.4); White Blood Count 7.24 K/uL (4.8-10.8)
[2020-07-26] MEDS ORDERED: ALBUTEROL HFA 8 GM INHALER INH PRN (22:52)
[2020-07-26] MEDS ORDERED: ONDANSETRON INJ 2 MG/ML 2 ML VIAL IV PRN (22:52)
[2020-07-26] MEDS ORDERED: POLYETHYLENE (MIRALAX) 17 GM PACK PO PRN (22:52)
[2020-07-26] MEDS ORDERED: methylPREDNISolone 125 MG/2 ML VIAL IV STA (22:57)
[2020-07-26 23:09] LABS: BUN Creatinine Ratio 57.7 (10-20); C Reactive Protein 0.55 mg/dl (0-0.29); Calcium 9.3 mg/dl (8.5-10.1); Est GFR (African American) 30.5 ml/min; Est GFR (Non-African American) 26.3 ml/min; Potassium 6.2 mmol/L (3.5-5.1)
[2020-07-26 23:13] LABS: Ferritin 595.3 ng/ml (8-388)
[2020-07-26] MEDS: SODIUM CHLORIDE 0.9% 1000ML 1,000 ML IV SCH (23:22)
[2020-07-26] MEDS: HEPARIN SOD 5,000 UNIT/0.5 ML VIAL SQ SCH (23:48)
[2020-07-27] MEDS: ACETAMINOPHEN 325 MG TAB PO PRN ×2 (00:28→07:58)
[2020-07-27] MEDS: ALBUT/IPRATROP 3MG/0.5MG NEB 3 ML VIAL NEB SCH ×2 (00:30→07:06)
[2020-07-27 00:38] LABS: Fibrinogen 386 mg/dl (184-400)
[2020-07-27] MEDS: HEPARIN SOD 5,000 UNIT/0.5 ML VIAL SQ SCH ×3 (05:33→21:00)
[2020-07-27] MEDS: methylPREDNISolone 40 MG in SYRINGE 0 ML IV SCH ×4 (05:33→22:57)
[2020-07-27 06:20] LABS: Appearance Urine Clear (Clear); Bilirubin Urine Negative (Negative); Blood Urine Negative (Negative); Color Urine Yellow; Glucose Urine UA Negative (Negative); Ketones Urine Negative (Negative); Leukocyte Esterase Urine Negative (Negative); Nitrite Urine Negative (Negative); Protein Urine Negative (Negative); Specific Gravity Urine 1.019 (1.000-1.030); Urobilinogen Urine Negative (Negative)
[2020-07-27 07:24] LABS: Hemoglobin 12.4 g/dL (12.0-16.0); Immature Granulocytes # (auto) 0.01 K/uL (0.00-0.02); Immature Granulocytes % (auto) 0.2 %; Lymphocytes # (auto) 0.32 K/uL (1.2-3.4); Lymphocytes % (auto) 6.6 %; Mean Corpuscular Hemoglobin 28.8 pg (25-34); Mean Corpuscular Hgb Conc 33.5 g/dL (32-36); Mean Platelet Volume 9.9 fL (7.4-10.4); Monocytes # (auto) 0.08 K/uL (0.11-0.59); Monocytes % (auto) 1.6 %; Neutrophils # (auto) 4.45 K/uL (1.4-6.5); Neutrophils % (auto) 91.6 %; Platelet Count 276 K/uL (130-400); RDW Coefficient of Variation 14.1 % (11.5-14.5); RDW Standard Deviation 44.1 fL (36.4-46.3); White Blood Count 4.86 K/uL (4.8-10.8)
[2020-07-27 07:44] LABS: Estimated Average Glucose 143 mg/dl; Hemoglobin A1C 6.6 % (4.5-5.6)
[2020-07-27 07:47] LABS: BUN Creatinine Ratio 57.4 (10-20); Calcium 9.3 mg/dl (8.5-10.1); Est GFR (African American) 32.9 ml/min; Est GFR (Non-African American) 28.4 ml/min; Magnesium 2.3 mg/dl (1.8-2.4); Potassium 5.5 mmol/L (3.5-5.1)
[2020-07-27] MEDS: AZITHROMYCIN 250 MG TAB PO SCH (07:50)
[2020-07-27] MEDS: FLUTICASONE/VILANTEROL 200/25MCG 14 PUFFS/INHALER INH SCH (07:50)
[2020-07-27] MEDS ORDERED: SODIUM POLYSTYRENE SULFONATE 15G/60ML SUSP PO STA (08:26)
[2020-07-27] MEDS: INSULIN GLARGINE SOLOSTAR 100 UNITS/ML 3 ML PEN SC SCH (09:02)
[2020-07-27] MEDS: SODIUM CHLORIDE 0.9% 1000ML 1,000 ML IV SCH (11:22)
[2020-07-27] MEDS: INSULIN ASPART 100 UNITS/ML 3 ML PEN SC SCH ×3 (11:31→20:58)
[2020-07-27] MEDS ORDERED: ALBUT/IPRATROP 3MG/0.5MG NEB 3 ML VIAL NEB PRN (12:30)
[2020-07-27] MEDS ORDERED: PANTOprazole 40 MG TAB PO STA (17:25)
--- NOTE | 2020-07-27 17:28 | Hospitalist Progress Note ---
Date of Service July 27, 2020 Assessment & Plan (1) COVID-19: Exact date of illness onset is uncertain. She reports being sick since late June. However, is hospitalized with COVID and his first symptoms were 10-14 days ago. Thus, her illness onset is more likely in the last 2 weeks. Labs look very acute - significant lymphopenia, elevated ferritin, etc. Her severe KIANNA with prerenal azotemia were likely from poor oral intake in the days leading up to presentation. Thus far she has no radiographic evidence of pneumonia. Her o2 sats are low-normal (89-92%). This is in setting of known COPD. However, she has had significant cough and other chest symptoms in the last 1-2 weeks. Using solumedrol for COPD exacerbation along with zithromax. Day #2 latter. She is diminished but doesn't have severe wheezing - thus, reduce solumedrol dosing to BID. Continue airborne isolation. (2) KIANNA (acute kidney injury): Improving with IV fluids. 2nd to poor oral intake from COVID-19 infection in the days leading up to admission. She had also been taking LOLY and HCTZ. HOLD LOLY. HOLD HCTZ. Continue IVF. BMP qam. (3) Acute hyperkalemia: 2nd to KIANNA with concomitant LOLY inhibitor use. Hyperkalemia improving but still not normal. Current level 5.5. Kayexalate 15gm x 1. Continue IV fluids. Repeat BMP am. (4) COPD (chronic obstructive pulmonary disease): with exacerbation. 2nd COVID-19. wean solumedrol to 40mg IV q12h from q6h dosing. add flutter valve. add incentive austen. continue home inhalers. If O2 sats are 90% or less add NC O2 to keep sats 90-92%. (5) Hypertension: BPs acceptable. Holding LOLY and HCTZ for now. (6) Kidney stone: Incidental finding on admission CT abd/pelvis. Non-obstructing 3mm right-sided stone. no Rx. (7) Ovarian cyst: Incidental finding on admission CT abd/pelvis. 7.8 cm on left. Will need follow up as outpatient with gynecology. Worrisome for ovarian ca. I spoke with pt's daughter and advised her of this cyst. (8) Cholelithiasis: Not symptomatic at this time. (9) Acute dehydration: Improving. Continue current IV fluids. BMP am. (10) Hyponatremia: Resolved. Hypovolemic hyponatremia. (11) Type 2 diabetes mellitus: a1c 6.6% consistent with early T2DM. Was not taking meds at home prior to admission. While hospitalized - basal-bolus insulin. Adjust as needed. (12) DVT prophylaxis: heparin 5000 TID left leg was scantly warm/erythematous on anterior sullivan thus, obtained dopplers of legs daughter updated by phone today will need PT, OT evals add PPI for GI prophylaxis Admission and Anticipated Discharge Date Admission Date: July 26, 2020 Subjective patient eating dinner during my visit. she reports cough of several weeks duration. she states "I've been sick since late June." c/o dyspnea on exertion. recent appetite and oral intake was very poor. sick with COVID; hospitalized at [facility] currently. she tested negative here yesterday, but she had visited a [facility] care locally and her test from 07/25 returned POSITIVE. patient denies loss of taste or smell. telemetry wnl since admission. Review of Systems Constitutional: + fatigue, + weakness and + anorexia (at home; appetite improved here ); no fever, no chills and no body aches Ear, Nose, Mouth, Throat: no nasal congestion Respiratory: + cough, + dyspnea on exertion and + sputum production Cardiovascular: + dyspnea on exertion; no chest pain and no edema Gastrointestinal: no abdominal pain, no nausea and no vomiting Physical Exam Constitutional: no acute distress and no altered mental status coughing ENMT: Mouth: + dry oral mucous membranes Respiratory: no respiratory distress very poor air movement all lung segments; hint of wheeze b/l; no obvious rales; no distress Cardiovascular: Rate/Rhythm: regular rate and regular rhythm (with extra beats) Heart Sounds: normal S1 and normal S2; no murmur Vessels: posterior tibial pulses present and dorsalis pedis pulses present; no JVD Extremities: no edema Gastrointestinal (Abdomen): normal bowel sounds, soft, nontender, no hepatosplenomegaly Musculoskeletal: Extremities: + clubbing Skin: tiny amount of faint, irregular erythema on distal left sullivan Psychiatric: Orientation: alert, oriented to person and oriented to place Results & Data Results & Data ([facility]) Vital Signs (Past 12 Hours) Vital Signs Temp Pulse Pulse Resp BP BP Pulse Ox 07/27/20 17:00 97 H 90 05/22/21 16:51 109 H 151/78 H 90 07/27/20 16:00 87 90 07/27/20 15:51 81 124/80 90 07/27/20 15:00 72 93 07/27/20 14:51 87 122/72 89 L 07/27/20 14:00 106 H 89 L 07/27/20 13:51 90 130/77 90 07/27/20 12:51 99 H 133/97 92 07/27/20 12:00 36.6 C 89 90 07/27/20 11:56 36.6 C 07/27/20 11:51 88 129/90 91 07/27/20 10:51 74 93/63 L 07/27/20 10:30 86 92 07/27/20 10:00 118 H 90 07/27/20 09:51 112 H 129/83 91 07/27/20 09:50 113 H 91 07/27/20 07:55 36.6 C 105 H 18 130/66 96 07/27/20 07:07 102 H 16 93 Laboratory Results Laboratory Results - last 24 hr 07/26/20 07/26/20 07/26/20 19:09 19:09 19:09 WBC 7.24 RBC 4.74 Hgb 14.4 Hct 41.4 MCV 87.3 MCH 30.4 MCHC 34.8 RDW Std Deviation 44.1 RDW Coeff of Ezio 14.1 Plt Count 369 MPV 10.2 Immature Gran % (Auto) 1.2 Neut % (Auto) 92.0 Lymph % (Auto) 4.4 Ciales % (Auto) 2.3 Eos % (Auto) 0.0 Baso % (Auto) 0.1 Neut # (Auto) 6.65 H Lymph # (Auto) 0.32 L Ciales # (Auto) 0.17 Eos # (Auto) 0.00 Baso # (Auto) 0.01 Immature Gran # (Auto) 0.09 H Fibrinogen Sodium 135 L Potassium 6.2 H* Chloride 107 Carbon Dioxide 19 L Anion Gap 9.0 BUN 113 H Creatinine 2.11 H Est Cr Clr Drug Dosing 19.4 Est GFR ( Amer) 24.8 Est GFR (Non-Af Amer) 21.4 BUN/Creatinine Ratio 53.6 H Glucose 154 H POC Glucose Estimat Average Glucose Hemoglobin A1c Calcium 9.3 Magnesium Ferritin Total Bilirubin 0.7 AST 18 ALT 25 Alkaline Phosphatase 70 C-Reactive Protein Total Protein 9.0 H Albumin 3.3 L Globulin 5.7 H Albumin/Globulin Ratio 0.6 L Specimen Hemolysis Urine Color Dark Yellow Urine Appearance Cloudy A Urine pH 5.0 Ur Specific Laurel 1.021 Urine Protein Negative Urine Glucose (UA) Negative Urine Ketones Trace H Urine Blood Negative Urine Nitrite Negative Urine Bilirubin Negative Urine Urobilinogen Negative Ur Leukocyte Esterase 2+ H Urine WBC (Auto) >30 H Urine RBC (Auto) 0-4 U Hyaline Cast (Auto) >30 H U Epithel Cells (Auto) >30 H Urine Bacteria (Auto) Negative Granular Casts 1-5 H Ur Random Creatinine Ur Random Sodium Ur Random Urea Nitrogn Nasal Screen MRSA (PCR) COVID-19 Eval Order SARS-CoV-2 (PCR) 07/26/20 07/26/20 07/26/20 19:09 19:09 19:15 WBC RBC Hgb Hct MCV MCH MCHC RDW Std Deviation RDW Coeff of Ezio Plt Count MPV Immature Gran % (Auto) Neut % (Auto) Lymph % (Auto) Ciales % (Auto) Eos % (Auto) Baso % (Auto) Neut # (Auto) Lymph # (Auto) Ciales # (Auto) Eos # (Auto) Baso # (Auto) Immature Gran # (Auto) Fibrinogen Sodium Potassium Chloride Carbon Dioxide Anion Gap BUN Creatinine Est Cr Clr Drug Dosing Est GFR ( Amer) Est GFR (Non-Af Amer) BUN/Creatinine Ratio Glucose POC Glucose Estimat Average Glucose Hemoglobin A1c Calcium Magnesium Ferritin Total Bilirubin AST ALT Alkaline Phosphatase C-Reactive Protein Total Protein Albumin Globulin Albumin/Globulin Ratio Specimen Hemolysis Urine Color Urine Appearance Urine pH Ur Specific Laurel Urine Protein Urine Glucose (UA) Urine Ketones Urine Blood Urine Nitrite Urine Bilirubin Urine Urobilinogen Ur Leukocyte Esterase Urine WBC (Auto) Urine RBC (Auto) U Hyaline Cast (Auto) U Epithel Cells (Auto) Urine Bacteria (Auto) Granular Casts Ur Random Creatinine 254.0 Ur Random Sodium 16 Ur Random Urea Nitrogn 893 Nasal Screen MRSA (PCR) COVID-19 Eval Order Covid19 at [facility] SARS-CoV-2 (PCR) 07/26/20 07/26/20 07/26/20 19:15 20:48 22:32 WBC RBC Hgb Hct MCV MCH MCHC RDW Std Deviation RDW Coeff of Ezio Plt Count MPV Immature Gran % (Auto) Neut % (Auto) Lymph % (Auto) Ciales % (Auto) Eos % (Auto) Baso % (Auto) Neut # (Auto) Lymph # (Auto) Ciales # (Auto) Eos # (Auto) Baso # (Auto) Immature Gran # (Auto) Fibrinogen Sodium 136 Potassium 6.2 H* Chloride 108 H Carbon Dioxide 22 Anion Gap 5.0 BUN 103 H Creatinine 1.78 H D Est Cr Clr Drug Dosing 23.0 Est GFR ( Amer) 30.5 Est GFR (Non-Af Amer) 26.3 BUN/Creatinine Ratio 57.7 H Glucose 139 H POC Glucose 133 H Estimat Average Glucose Hemoglobin A1c Calcium 9.3 Magnesium Ferritin 595.3 H Total Bilirubin AST ALT Alkaline Phosphatase C-Reactive Protein 0.55 H Total Protein Albumin Globulin Albumin/Globulin Ratio Specimen Hemolysis Urine Color Urine Appearance Urine pH Ur Specific Laurel Urine Protein Urine Glucose (UA) Urine Ketones Urine Blood Urine Nitrite Urine Bilirubin Urine Urobilinogen Ur Leukocyte Esterase Urine WBC (Auto) Urine RBC (Auto) U Hyaline Cast (Auto) U Epithel Cells (Auto) Urine Bacteria (Auto) Granular Casts Ur Random Creatinine Ur Random Sodium Ur Random Urea Nitrogn Nasal Screen MRSA (PCR) COVID-19 Eval Order SARS-CoV-2 (PCR) NEGATIVE 07/26/20 07/27/20 07/27/20 23:11 05:40 06:38 WBC 4.86 RBC 4.30 Hgb 12.4 Hct 37.0 MCV 86.0 MCH 28.8 MCHC 33.5 RDW Std Deviation 44.1 RDW Coeff of Ezio 14.1 Plt Count 276 MPV 9.9 Immature Gran % (Auto) 0.2 Neut % (Auto) 91.6 Lymph % (Auto) 6.6 Ciales % (Auto) 1.6 Eos % (Auto) 0.0 Baso % (Auto) 0.0 Neut # (Auto) 4.45 Lymph # (Auto) 0.32 L Ciales # (Auto) 0.08 L Eos # (Auto) 0.00 Baso # (Auto) 0.00 Immature Gran # (Auto) 0.01 Fibrinogen 386 Sodium Potassium Chloride Carbon Dioxide Anion Gap BUN Creatinine Est Cr Clr Drug Dosing Est GFR ( Amer) Est GFR (Non-Af Amer) BUN/Creatinine Ratio Glucose POC Glucose Estimat Average Glucose Hemoglobin A1c Calcium Magnesium Ferritin Total Bilirubin AST ALT Alkaline Phosphatase C-Reactive Protein Total Protein Albumin Globulin Albumin/Globulin Ratio Specimen Hemolysis Urine Color Yellow Urine Appearance Clear Urine pH 5.0 Ur Specific Laurel 1.019 Urine Protein Negative Urine Glucose (UA) Negative Urine Ketones Negative Urine Blood Negative Urine Nitrite Negative Urine Bilirubin Negative Urine Urobilinogen Negative Ur Leukocyte Esterase Negative Urine WBC (Auto) Urine RBC (Auto) U Hyaline Cast (Auto) U Epithel Cells (Auto) Urine Bacteria (Auto) Granular Casts Ur Random Creatinine Ur Random Sodium Ur Random Urea Nitrogn Nasal Screen MRSA (PCR) COVID-19 Eval Order SARS-CoV-2 (PCR) 07/27/20 07/27/20 07/27/20 06:38 06:38 07:38 WBC RBC Hgb Hct MCV MCH MCHC RDW Std Deviation RDW Coeff of Ezio Plt Count MPV Immature Gran % (Auto) Neut % (Auto) Lymph % (Auto) Ciales % (Auto) Eos % (Auto) Baso % (Auto) Neut # (Auto) Lymph # (Auto) Ciales # (Auto) Eos # (Auto) Baso # (Auto) Immature Gran # (Auto) Fibrinogen Sodium 137 Potassium 5.5 H Chloride 108 H Carbon Dioxide 21 Anion Gap 8.0 BUN 96 H Creatinine 1.67 H Est Cr Clr Drug Dosing 24.0 Est GFR ( Amer) 32.9 Est GFR (Non-Af Amer) 28.4 BUN/Creatinine Ratio 57.4 H Glucose 196 H POC Glucose 210 H Estimat Average Glucose 143 Hemoglobin A1c 6.6 H Calcium 9.3 Magnesium 2.3 Ferritin Total Bilirubin AST ALT Alkaline Phosphatase C-Reactive Protein Total Protein Albumin Globulin Albumin/Globulin Ratio Specimen Hemolysis Urine Color Urine Appearance Urine pH Ur Specific Laurel Urine Protein Urine Glucose (UA) Urine Ketones Urine Blood Urine Nitrite Urine Bilirubin Urine Urobilinogen Ur Leukocyte Esterase Urine WBC (Auto) Urine RBC (Auto) U Hyaline Cast (Auto) U Epithel Cells (Auto) Urine Bacteria (Auto) Granular Casts Ur Random Creatinine Ur Random Sodium Ur Random Urea Nitrogn Nasal Screen MRSA (PCR) COVID-19 Eval Order SARS-CoV-2 (PCR) 07/27/20 07/27/20 07/27/20 10:05 11:27 16:46 WBC RBC Hgb Hct MCV MCH MCHC RDW Std Deviation RDW Coeff of Ezio Plt Count MPV Immature Gran % (Auto) Neut % (Auto) Lymph % (Auto) Ciales % (Auto) Eos % (Auto) Baso % (Auto) Neut # (Auto) Lymph # (Auto) Ciales # (Auto) Eos # (Auto) Baso # (Auto) Immature Gran # (Auto) Fibrinogen Sodium Potassium Chloride Carbon Dioxide Anion Gap BUN Creatinine Est Cr Clr Drug Dosing Est GFR ( Amer) Est GFR (Non-Af Amer) BUN/Creatinine Ratio Glucose POC Glucose 162 H 126 H Estimat Average Glucose Hemoglobin A1c Calcium Magnesium Ferritin Total Bilirubin AST ALT Alkaline Phosphatase C-Reactive Protein Total Protein Albumin Globulin Albumin/Globulin Ratio Specimen Hemolysis Urine Color Urine Appearance Urine pH Ur Specific Laurel Urine Protein Urine Glucose (UA) Urine Ketones Urine Blood Urine Nitrite Urine Bilirubin Urine Urobilinogen Ur Leukocyte Esterase Urine WBC (Auto) Urine RBC (Auto) U Hyaline Cast (Auto) U Epithel Cells (Auto) Urine Bacteria (Auto) Granular Casts Ur Random Creatinine Ur Random Sodium Ur Random Urea Nitrogn Nasal Screen MRSA (PCR) Negative COVID-19 Eval Order SARS-CoV-2 (PCR) PG Care Time/CCT Total # of Minutes Spent Total Time Spent with Patient: Total time spent is greater than 50% in coordination of care (as documented) at patient's floor/unit and/or counseling patient: Coding Level of Care Code 25885 Subseq Hosp Care Lvl 3 Diagnoses COVID-19 U07.1 KIANNA (acute kidney injury) N17.9 Acute hyperkalemia E87.5 COPD (chronic obstructive pulmonary disease) J44.9 COPD type: unspecified COPD Hypertension I10 Hypertension type: essential hypertension Kidney stone N20.0 Ovarian cyst N83.209 Laterality: unspecified laterality Cholelithiasis K80.80 Cholelithiasis location: other site Biliary obstruction: without biliary obstruction Acute dehydration E86.0 Hyponatremia E87.1 Type 2 diabetes mellitus E11.9 DVT prophylaxis Z29.9 (1) COPD (chronic obstructive pulmonary disease) COPD type: unspecified COPD Qualified Code(s): J44.9 - Chronic obstructive pulmonary disease, unspecified (2) Hypertension Hypertension type: essential hypertension Qualified Code(s): I10 - Essential (primary) hypertension (3) Ovarian cyst Laterality: unspecified laterality Qualified Code(s): N83.209 - Unspecified ovarian cyst, unspecified side (4) Cholelithiasis Cholelithiasis location: other site Biliary obstruction: without biliary obstruction Qualified Code(s): K80.80 - Other cholelithiasis without obstruction
--- NOTE | 2020-07-27 18:41 | Ultrasound Report ---
BILATERAL LOWER EXTREMITY VENOUS DOPPLER HISTORY: Acute pain and swelling of the bilateral lower extremities COVID+, Left leg erythema/warmth ; eval DVT b/l COMPARISON STUDY: None. FINDINGS: There is normal compressibility, flow, and augmentation within the bilateral lower extremit y deep venous systems. IMPRESSION: No DVT within the right or left lower extremity. ACT 112: Negative or not required by law. Electronically signed by: Maxim Evans M.D. 07/27/2020 6:40 PM
--- NOTE | 2020-07-28 00:03 | Electrocardiogram Report ---
Test Reason : Blood Pressure : / mmHG Vent. Rate : 098 BPM Atrial Rate : 098 BPM P-R Int : 160 ms QRS Dur : 062 ms QT Int : 328 ms P-R-T Axes : 046 046 055 degrees QTc Int : 418 ms Sinus rhythm When compared with ECG of 22-OCT-2017 18:10, No significant change Confirmed by Molina Sinha ([id number]) on 07/28/2020 12:03:24 AM Referred By: REFERRED SELF Confirmed By:Molina Sinha
[2020-07-28] MEDS: SODIUM CHLORIDE 0.9% 1000ML 1,000 ML IV SCH ×2 (02:44→16:00)
--- NOTE | 2020-07-28 04:59 | Billing Data ---
Date of Service July 28, 2020 Coding Level of Care Code 24142 Initial Inpt Care Lvl 3
[2020-07-28] MEDS: HEPARIN SOD 5,000 UNIT/0.5 ML VIAL SQ SCH ×3 (05:05→22:24)
[2020-07-28 06:12] LABS: BUN Creatinine Ratio 46.3 (10-20); Calcium 8.7 mg/dl (8.5-10.1); Creatinine Clr Calc Pharmacy 24.7 ml/min; Est GFR (African American) 34.1 ml/min; Est GFR (Non-African American) 29.5 ml/min; Potassium 5.1 mmol/L (3.5-5.1)
--- NOTE | 2020-07-28 07:32 | Hospitalist Progress Note ---
Date of Service July 28, 2020 Assessment & Plan (1) COVID-19: reportedly positive outpt test, also positive, no pneumonia at this time, treated with steroids patient will be transferred out of telemetry to a telemetry floor while PT OT evaluation she continues to improve she may be to go home shortly her is already home she may need to see step before she goes home (2) COPD (chronic obstructive pulmonary disease): acute on chronic respiratory failure copd with exacerbation. secondary to COVID-19. no evidence of infection at this timesteroids are for both wean solumedrol to 40mg IV q12h add flutter valve incentive austen. continue home inhalers. If O2 sats are 90% or less add NC O2 to keep sats 90-92%. (3) Acute hyperkalemia: 2nd to KIANNA with concomitant LOLY inhibitor use. Hyperkalemia resolved , ckd 3 (4) KIANNA (acute kidney injury): Improving with IV fluids. 2nd to poor oral intake from COVID-19 infection in the days leading up to admission. She had also been taking LOLY and HCTZ. HOLD LOLY. HCTZ. ckd3. (5) Hypertension: BPs acceptable. Holding LOLY and HCTZ for now. (6) Kidney stone: Incidental finding on admission CT abd/pelvis. Non-obstructing 3mm right-sided stone. no Rx. (7) Ovarian cyst: Incidental finding on admission CT abd/pelvis. 7.8 cm on left. Will need follow up as outpatient with gynecology. Worrisome for ovarian ca. I spoke with pt's daughter and advised her of this cyst. (8) Cholelithiasis: Not symptomatic at this time. Admission and Anticipated Discharge Date Admission Date: July 26, 2020 Subjective patient eating breakfast during my visit. Patient doing much better he is no longer on oxygen Review of Systems Review of Systems: Mild distress and fatigue no headache, blurry or double vision no speech or swallowing issues no chest pain, pressure or palpitations Patient now has mild shortness of breath and cough productive of yellow sputum no abdominal pain, nausea or vomiting, diarrhea or constipation no dysuria, hematuria or frequency no focal joint pain or swelling no back pain, CVA tenderness or radicular pain no bruising, bleeding or rashes no focal signs of weakness or numbness or altered sensation no complaints of anxiety or depression.. Physical Exam Physical Exam: The patient appeared well nourished and normally developed. Vital signs as documented. Head exam is normocephalic atraumatic Neck is without JVD, thyromegaly, or carotid bruits. Lungs are coarse breath sounds bilaterally Cardiac exam, Rhythm is regular.. No murmurs, rubs or gallops. Abdominal exam reveals normal bowel sounds, soft non tender, no masses Extremities are nonedematous and both pedal pulses are present Neurologic exam is alert and oriented, no focal loss of strength or sensation Skin is without bruises or rashes Psychologically is without concerns for anxiety or depression Results & Data Results & Data ([facility]) Vital Signs (Past 12 Hours) Vital Signs Temp Pulse Resp BP Pulse Ox Pulse Ox 07/28/20 06:07 93 H 20 160/78 H 94 07/28/20 05:00 84 20 93 07/28/20 04:06 74 92 07/28/20 03:51 98.1 F 59 L 17 145/69 H 91 07/28/20 02:51 67 16 137/68 91 07/28/20 01:51 53 L 18 130/62 90 07/28/20 00:51 58 L 15 120/55 L 89 L 07/27/20 23:51 98.1 F 68 15 127/62 90 07/27/20 22:52 91 07/27/20 22:51 84 126/71 90 07/27/20 21:51 63 16 138/65 91 07/27/20 21:00 74 90 07/27/20 20:51 98.2 F 74 19 143/74 H 91 07/27/20 20:00 75 90 07/27/20 19:51 80 140/72 92 PG Care Time/CCT Total # of Minutes Spent Total Time Spent with Patient: Total time spent is greater than 50% in coordination of care (as documented) at patient's floor/unit and/or counseling patient: Coding Level of Care Code 72997 Subseq Hosp Care Lvl 2 Diagnoses COVID-19 U07.1 COPD (chronic obstructive pulmonary disease) J44.9 COPD type: unspecified COPD Acute hyperkalemia E87.5 KIANNA (acute kidney injury) N17.9 Hypertension I10 Hypertension type: essential hypertension Kidney stone N20.0 Ovarian cyst N83.209 Laterality: unspecified laterality Cholelithiasis K80.80 Biliary obstruction: without biliary obstruction Cholelithiasis location: other site (1) Ovarian cyst Laterality: unspecified laterality Qualified Code(s): N83.209 - Unspecified ovarian cyst, unspecified side (2) COPD (chronic obstructive pulmonary disease) COPD type: unspecified COPD Qualified Code(s): J44.9 - Chronic obstructive pulmonary disease, unspecified (3) Hypertension Hypertension type: essential hypertension Qualified Code(s): I10 - Essential (primary) hypertension (4) Cholelithiasis Biliary obstruction: without biliary obstruction Cholelithiasis location: other site Qualified Code(s): K80.80 - Other cholelithiasis without obstruction
[2020-07-28] MEDS: AZITHROMYCIN 250 MG TAB PO SCH (07:44)
[2020-07-28] MEDS: PANTOprazole 40 MG TAB PO SCH (07:45)
[2020-07-28] MEDS: INSULIN GLARGINE SOLOSTAR 100 UNITS/ML 3 ML PEN SC SCH (07:45)
[2020-07-28] MEDS: FLUTICASONE/VILANTEROL 200/25MCG 14 PUFFS/INHALER INH SCH (07:45)
[2020-07-28] MEDS: INSULIN ASPART 100 UNITS/ML 3 ML PEN SC SCH ×4 (08:06→21:44)
[2020-07-28] MEDS: methylPREDNISolone 40 MG in SYRINGE 0 ML IV SCH ×2 (11:23→22:24)
[2020-07-29] MEDS: SODIUM CHLORIDE 0.9% 1000ML 1,000 ML IV SCH ×2 (04:13→15:16)
[2020-07-29] MEDS: HEPARIN SOD 5,000 UNIT/0.5 ML VIAL SQ SCH ×3 (06:13→21:18)
[2020-07-29 07:45] LABS: BUN Creatinine Ratio 40.7 (10-20); Calcium 8.7 mg/dl (8.5-10.1); Creatinine Clr Calc Pharmacy 26.9 ml/min; Est GFR (African American) 37.8 ml/min; Est GFR (Non-African American) 32.6 ml/min; Potassium 4.5 mmol/L (3.5-5.1)
[2020-07-29] MEDS: PANTOprazole 40 MG TAB PO SCH (09:32)
[2020-07-29] MEDS: AZITHROMYCIN 250 MG TAB PO SCH (09:32)
[2020-07-29] MEDS: FLUTICASONE/VILANTEROL 200/25MCG 14 PUFFS/INHALER INH SCH (09:32)
--- NOTE | 2020-07-29 09:37 | Hospitalist Progress Note ---
Date of Service July 29, 2020 Assessment & Plan (1) COPD (chronic obstructive pulmonary disease): COPD exacerbation/possible COVID-19 infection: -- After ambulating her SpO2 dropped to 89% on room air but patient denies any sensation of SOB or dyspnea, SpO2 91% to 93% on room air at rest. -- Her cough is getting better, not coughing as much and it's less productive. -- Patient states she is about 90% back to her baseline. Recommend: -- Duonebs every 6 hours while awake and every 2 hours when necessary. -- Methylprednisolone 40 mg IV every 6 hours -- Guaifenesin extended release 600 mg b.i.d.. -- Vitamin D 5000 IU daily -- Zinc sulfate 20 mg p.o. daily -- Initial COVID-19 negative, repeat is pending. -- Continue isolation/COVID precautions. (2) Person under investigation for COVID-19: -- As outlined above. (3) Acute hyperkalemia: KIANNA with Hyperkalemia. -- Resolved. -- Today's serum K is 4.5 mmol/L. -- On IVF's. (4) Hypertension: BP's occasionally high. -- Lisinopril and Hydrochlorothiazide are on hold currently. (5) Hyperlipidemia: -- Recently started on Atorvastatin. (6) Ovarian cyst: -- Concerning for malignancy. -- Patient and her daughter are aware of this. -- Follow-up with Senior Operator as an outpatient. Admission and Anticipated Discharge Date Admission Date: July 26, 2020 Subjective Mrs. Cullen is being seen in room 300. Ambulating with PT when I entered, SpO2 was 89% after walking but patient denies any sensation of SOB or dyspnea. Her cough is getting better, not coughing as much and it's less productive. Patient states she is about 90% back to her baseline. She denies any chest pain, orthopnea, PND, or hemoptysis. Denies any fever or chills. Review of Systems Review of Systems: All systems reviewed & are unremarkable except as noted in Subjective Physical Exam Physical Exam: SpO2 90% to 93% on room air at rest, drops down to 89% with ambulation. GENERAL: Patient in no acute distress. HEENT: Head is atraumatic, normocephalic. EOM's intact. Facies symmetric. No perioral cyanosis. NECK: No JVD. JVP is at the level of the clavicle sitting upright. Carotid upstrokes are + 2 bilaterally. No bruits are noted. CHEST/LUNGS: Increased A:P diameter, thoracic kyphosis is noted. Diminished breath sounds throughout, but clear. No wheezes, rales, or crackles. CVS: S1 and S2 are regular and distant without obvious murmurs, gallops, or rubs. PMI is nondisplaced. No lifts, heaves, or thrills. No abdominal aortic or renal bruits. ABDOMINAL EXAM: Bowel sounds are present. No masses, organomegaly, or tenderness. EXTREMITIES: No clubbing or cyanosis. No edema. Intact radial pulses bilaterally. NEUROLOGIC EXAM: Patient is awake, alert, and oriented. Pleasant and cooperative. Answers questions appropriately. Speech is clear. Normal movement in all 4 extremities. Gait pattern is unremarkable. Results & Data Results & Data ([facility]) Vital Signs (Past 12 Hours) Vital Signs Temp Pulse Resp BP Pulse Ox 07/29/20 08:20 36.5 C 62 12 167/80 H 93 Laboratory Results Laboratory Results - last 24 hr 07/28/20 07/28/20 07/28/20 11:27 17:09 21:10 Sodium Potassium Chloride Carbon Dioxide Anion Gap BUN Creatinine Est Cr Clr Drug Dosing Est GFR ( Amer) Est GFR (Non-Af Amer) BUN/Creatinine Ratio Glucose POC Glucose 102 H 172 H 155 H Calcium 07/29/20 07/29/20 06:25 08:26 Sodium 140 Potassium 4.5 Chloride 113 H Carbon Dioxide 21 Anion Gap 6.0 BUN 61 H Creatinine 1.49 H Est Cr Clr Drug Dosing 26.9 Est GFR ( Amer) 37.8 Est GFR (Non-Af Amer) 32.6 BUN/Creatinine Ratio 40.7 H Glucose 140 H POC Glucose 109 H Calcium 8.7 Medications Administered Medications cholecalciferol (vitamin D3) 25 mcg (1,000 unit) capsule 1,000 units PO DAILY 01/02/19 [History Confirmed 07/26/20] multivitamin 1 tab PO DAILY 01/02/19 [History Confirmed 07/26/20] lisinopril 20 mg tablet 20 mg PO DAILY #90 tab 02/19/20 [Rx Confirmed 07/26/20] albuterol sulfate 2 puff INHALATION QID PRN 07/26/20 [History Confirmed 07/26/20] azithromycin 250 mg PO UD 07/26/20 [History Confirmed 07/26/20] fluticasone propion-salmeterol 1 ea INHALATION BID 07/26/20 [History Confirmed 07/26/20] hydrochlorothiazide 25 mg PO DAILY 07/26/20 [History Confirmed 07/26/20] prednisone 20 mg PO UD 07/26/20 [History Confirmed 07/26/20] Home Medications Acetaminophen (Acetaminophen 325 Mg Tab) 650 mg PO Q4H PRN PRN Reason: Pain or Fever Stop: 08/25/20 22:51 Last Admin: 07/27/20 07:58 Dose: 650 mg Documented by: Albuterol (Albuterol Hfa 8 Gm Inhaler) 2 puffs INH QID PRN PRN Reason: Shortness Of Breath Or Wheezin Stop: 08/25/20 22:51 Albuterol (Albut/Ipratrop 3mg/0.5mg Neb 3 Ml Vial) 3 ml NEB Q6R PRN PRN Reason: Shortness Of Breath Or Wheezing Stop: 08/26/20 00:59 Azithromycin (Azithromycin 250 Mg Tab) 250 mg PO DAILY [facility] Stop: 07/30/20 09:01 Last Admin: 07/29/20 09:32 Dose: 250 mg Documented by: Fluticasone/Vilanterol (Fluticasone/Vilanterol 200/25mcg 14 Puffs/Inhaler) 1 puffs INH DAILY [facility] Stop: 08/26/20 08:59 Last Admin: 07/29/20 09:32 Dose: 1 puffs Documented by: Heparin Sodium (Porcine) (Heparin Sod 5,000 Unit/0.5 Ml Vial) 5,000 units SQ Q8 BILL Stop: 08/25/20 22:51 Last Admin: 07/29/20 06:13 Dose: 5,000 units Documented by: Sodium Chloride (Nss 1000ml) 1,000 mls @ 80 mls/hr IV .[id number] [facility] Stop: 08/25/20 22:51 Last Admin: 07/29/20 04:13 Dose: 80 mls/hr Documented by: Methylprednisolone 40 mg/ (Syringe) 0.64 mls @ 1.5 mls/min IV Q12H [facility] Stop: 08/26/20 22:59 Last Admin: 07/28/20 22:24 Dose: 1.5 mls/min Documented by: Insulin Aspart (Insulin Aspart 100 Units/Ml 3 Ml Pen) 0 units SC ACHS [facility] Stop: 08/26/20 11:29 Last Admin: 07/28/20 21:44 Dose: Not Given Documented by: Insulin Glargine (Insulin Glargine Solostar 100 Units/Ml 3 Ml Pen) 10 units SC QAM BILL Stop: 08/26/20 08:59 Last Admin: 07/28/20 07:45 Dose: 10 units Documented by: Ondansetron HCl (Ondansetron Inj 2 Mg/Ml 2 Ml Vial) 4 mg IV Q6H PRN PRN Reason: Nausea Stop: 08/25/20 22:51 Pantoprazole Sodium (Pantoprazole 40 Mg Tab) 40 mg PO QAM [facility] Stop: 08/27/20 08:59 Last Admin: 07/29/20 09:32 Dose: 40 mg Documented by: Polyethylene Glycol (Polyethylene (Miralax) 17 Gm Pack) 17 gm PO DAILY PRN PRN Reason: Constipation Stop: 08/25/20 22:51 PG Care Time/CCT Total # of Minutes Spent Total Time Spent with Patient: Total time spent is greater than 50% in coordination of care (as documented) at patient's floor/unit and/or counseling patient:40 Coding Level of Care Code 92366 Subseq Hosp Care Lvl 3 Diagnoses COPD (chronic obstructive pulmonary disease) J44.9 COPD type: unspecified COPD Person under investigation for COVID-19 Z20.822 Acute hyperkalemia E87.5 Hypertension I10 Hypertension type: essential hypertension Hyperlipidemia E78.5 Hyperlipidemia type: unspecified Ovarian cyst N83.209 Laterality: unspecified laterality Time Spent (min) 55 (1) COPD (chronic obstructive pulmonary disease) COPD type: unspecified COPD Qualified Code(s): J44.9 - Chronic obstructive pulmonary disease, unspecified (2) Hypertension Hypertension type: essential hypertension Qualified Code(s): I10 - Essential (primary) hypertension (3) Hyperlipidemia Hyperlipidemia type: unspecified Qualified Code(s): E78.5 - Hyperlipidemia, unspecified (4) Ovarian cyst Laterality: unspecified laterality Qualified Code(s): N83.209 - Unspecified ovarian cyst, unspecified side
[2020-07-29] MEDS: INSULIN ASPART 100 UNITS/ML 3 ML PEN SC SCH ×4 (09:44→21:16)
[2020-07-29] MEDS: INSULIN GLARGINE SOLOSTAR 100 UNITS/ML 3 ML PEN SC SCH (09:44)
[2020-07-29] MEDS: methylPREDNISolone 40 MG in SYRINGE 0 ML IV SCH ×2 (11:59→21:18)
[2020-07-30] MEDS: HEPARIN SOD 5,000 UNIT/0.5 ML VIAL SQ SCH ×2 (05:58→13:22)
[2020-07-30] MEDS: AZITHROMYCIN 250 MG TAB PO SCH (08:37)
[2020-07-30] MEDS: PANTOprazole 40 MG TAB PO SCH (08:37)
[2020-07-30] MEDS: FLUTICASONE/VILANTEROL 200/25MCG 14 PUFFS/INHALER INH SCH (08:38)
[2020-07-30] MEDS: INSULIN GLARGINE SOLOSTAR 100 UNITS/ML 3 ML PEN SC SCH (08:40)
[2020-07-30] MEDS: INSULIN ASPART 100 UNITS/ML 3 ML PEN SC SCH ×2 (08:40→13:21)
--- NOTE | 2020-07-30 09:58 | Discharge Summary ---
Date of Service July 30, 2020 Admission HPI Per Admitting Provider 80 YOF, comes to the emergency room today after going to urgent care today for cough, back, pain and feeling ill. Patient has a past medical history of COPD(no PFT's on file) but previous smoker, HTN. As above she was seen at urgent care today and started on Azithromycin and prednisone and given Advair inhaler. She was noted at this time to have elevated potassium and acute kidney injury. For her cough, she has had this since end of June and her mucous is thick white and occasional yellow. Her is admitted for COVID-19 and is on day 13 of his illness, they stay in different areas of the house, they also live with their daughter and her and they have reportedly tested negative. She will be admitted for IV hydration for her renal function and potassium, follow her respiratory illness. Will place as PUI. She had a test performed at urgent care today as well. Principal Diagnosis COPD exacerbation Discharge Exam Constitutional WD/WN, vitals as above Neck trachea midline, no thyromegaly Respiratory normal respiratory effort; no respiratory distress and no cough Auscultation: lungs clear to auscultation bilaterally and + diminished lung sounds (diffuse, consistent with COPD) Cardiovascular RRR, no murmur, no edema Gastrointestinal (Abdomen) normal bowel sounds, soft, nontender, no hepatosplenomegaly Musculoskeletal no cyanosis or clubbing, extremities motor strength 5/5 Skin no rashes, warm and dry Neurologic patellar DTR's 2+ bilat, sensation intact and PERRL, EOMI, accommodation nl, no face palsy, no dysarthria Psychiatric A+Ox3, euthymic affect Lymphatic no cervical or axillary lymphadenopathy Discharge Data Allergies Allergy/AdvReac Type Severity Reaction Status Date / Time No Known Allergies Allergy Unverified 07/26/20 19:32 Consultations 07/26/20 19:49 ED Decision to Admit Stat Ordered Studies 07/26/20 19:37 CT abd pelvis wo con Stat 07/27/20 17:24 US venous doppler [facility] Urgent Hospital Course (1) COPD (chronic obstructive pulmonary disease): COPD exacerbation, no evidence of COVID 19 (negative test and chest x-ray without infiltrates) treated with Solu Medrol IV and duonebs and course of Zithromax feeling much better, saturations stable on room air, 94%, no wheezing, no distress, able to ambulate in the room will discharge home on Prednisone taper: 40mg x 2, 30mg x 2, 20mg x 2 and 10mg x 2 then stop follow up with PCP in a week (2) Person under investigation for COVID-19: ruled out, COVID 19 negative, no infiltrates on CXR (3) Acute hyperkalemia: due to KIANNA and taking Lisinopril with KIANNA and dehydration K is 4.5 on 07/29, treated with IV fluids recommend she stay well hydrated, can continue Lisinopril 20mg daily check a BMP on 08/02 with results to PCP (4) Hypertension: BP is now high, resume Lisinopril 20mg daily today continue to hold HTCZ due to recent dehydration follow up with PCP for BP check in office in a week (5) Hyperlipidemia: -- Recently started on Atorvastatin, continue (6) Ovarian cyst: -- Concerning for malignancy. -- Patient and her daughter are aware of this. -- Follow-up with Director Of Acquisition Marketing as an outpatient made a referral [place] [facility], per patients daughter she does not think the patient has seen a hr advisor in 50 years will likely need pelvic US (7) Type 2 diabetes mellitus: HbA1c is slightly high at 6.6% will start on Metformin 500mg extended release at night discussed low carb diet follow up with PCP can hopefully manage with lifestyle and diet group home Total Time Total Time Spent Total Time Spent (In Minutes): 35 Total Time Includes: Examination of the Patient, Discharge Planning and Medication Reconciliation Discharge Plan Discharge Items Patient Disposition: Home - Self-Care Reason For Visit: HYPERKALEMIA Discharge Diagnosis: COPD exacerbation Condition on Discharge: Good Goals: finish Prednisone taper stay well nourished, well hydrated, well rested Activity: Resume your previous activity Non-emergency contact: Primary Care Provider Call non-emergency contact if: you have any medication questions and your symptoms worsen Follow-up/Referrals: Mignon Carolina MD, FACOG [Physician] - (2-3 weeks, can be with any provider, referral for ovarian cyst on CT scan) Nicolette Childs MD [Primary Care Provider] - (one week) Diet: Carb Consistent or DM2 Ambulatory Orders: Basic Metabolic Panel (Routine) Timeframe: [id number] Location: Determined by Patient Ordered By: Hunter Napier Attending Provider Instructions: Medications: - METFORMIN: 500mg extended release every evening, this is new medication for diabetes type II, see below in discussion - PREDNISONE: recommend a quick taper over next 8 days starting tomorrow take 40mg (4 tablets) daily x 2 days, then reduce to 30mg daily x 2 days then 20mg daily x 2 days then 10mg daily x 2 days then stop COPD exacerbation: improved with Solu medrol (IV steroid) and nebulizers and short course of Zithromax will send home on Prednisone taper continue prior inhaled treatments COVID testing was negative and chest x-ray showed no infiltrates to suggest pneumonia, lungs are clear, no fevers Dehydration, acute kidney injury nearly resolved, renal function improving daily, continue to stay well hydrated and well nourished recommend you continue Lisinopril, will give you a dose today prior to discharge and you can resume tomorrow at home recommend you stop taking hydrochlorothiazide for time being as this is diuretic repeat lab work next week and follow up with PCP Hyperglycemia (high sugars) and diabetes type II (hemoglobin A1c was slightly high at 6.6%) could be due to recent steroid use recommend you follow a low carbohydrate diet (avoid excessive breads, pastas, rice, avoid sweets) will start you on metformin 500mg in the evening as simple first option you may not require any medications group home with low carb diet and healthy lifestyle choices, follow up with PCP in a week OVARIAN CYST report from CT of the abdomen/pelvis: A 7.8 cm left ovarian cystic lesion. This contains a thin septation and a few punctate calcifications. This is nonspecific but could be pathologic in a postmenopausal female. Follow-up nonemergent gynecologic consultation recommended to exclude the possibility of an ovarian neoplasm. recommend you follow up with Gynecology and they can order pelvic ultrasound to better evaluate the ovary Pending Studies at Discharge: No Stand-Alone Forms: My [facility] [employer], Smoking Cessation Medications and DC Order Prescriptions: New prednisone 10 mg tablet 10 mg PO DAILY 8 Days Qty: 20 RF: 0 metformin 500 mg tablet extended release 24 hr 500 mg PO PM Qty: 30 RF: 3 Continued lisinopril 20 mg tablet 20 mg PO DAILY Qty: 90 RF: 1 cholecalciferol (vitamin D3) 1,000 unit capsule 1,000 units PO DAILY RF: 0 multivitamin tablet 1 tab PO DAILY RF: 0 fluticasone propion-salmeterol 250-50 mcg/dose blister with device 1 ea INHALATION BID RF: 0 albuterol sulfate 90 mcg/actuation Hfa Aerosol Inhaler 2 puff INHALATION QID PRN (Reason: Shortness Of Breath Or Wheezing) RF: 0 Discontinued hydrochlorothiazide 25 mg tablet 25 mg PO DAILY RF: 0 azithromycin 250 mg tablet 250 mg PO UD RF: 0 prednisone 20 mg tablet 20 mg PO UD RF: 0 Discharge Orders: Discharge Order (Routine); Ordered 07/30/20 Ordered By: Hunter Camacho/Other Patient Handouts: A1C Admission Data Admit Date/Time: 07/26/20 21:31 Attending Provider: Hunter Diallo Admit Provider: Rojas Yañez Primary Care Provider: Nicolette Childs Other Providers: Catracho Perry Coding Level of Care Code D/C Day Management >30 mins Diagnoses COPD (chronic obstructive pulmonary disease) J44.9 COPD type: unspecified COPD Person under investigation for COVID-19 Z20.822 Acute hyperkalemia E87.5 Hypertension I10 Hypertension type: essential hypertension Hyperlipidemia E78.5 Hyperlipidemia type: unspecified Ovarian cyst N83.209 Laterality: unspecified laterality Type 2 diabetes mellitus E11.9
[2020-07-30] MEDS ORDERED: lisinopril 20 MG TAB PO ONE (10:15)
[2020-07-30] MEDS: methylPREDNISolone 40 MG in SYRINGE 0 ML IV SCH (10:50)
== END 2020-07-30 16:05 | disposition home or self-care (01) | DRG 190 ==
LOC: ED 18:32 → 2S 21:31 → SUATTDRO 21:31 → 2S 22:28 → 1E 07-27 09:54 → 3E 07-28 13:13

== ENCOUNTER 2023-05-05 18:47 | Observation (INO) ==
--- NOTE | 2023-05-05 19:11 | Emergency Department Note ---
Impression & Plan Acute exacerbation of chronic obstructive pulmonary disease, Hypoxia, Acute bronchitis ED Provider Note NAME: JIGNESH CRAWFORD AGE: 82 SEX: F : 1940 ARRIVES VIA: Walk-In INFORMANT: Patient, ED PROVIDER(S): Frank Lopez DO CHIEF COMPLAINT: Shortness of breath. HPI: The patient is an 82-year-old female who presented to the emergency department for an evaluation of cough. The patient started feeling ill on Wednesday of this week. She has a history of COPD. She has noticed cough as well as fever. She notices malaise as well as sore throat. She also notices headache. She denies having any vomiting or abdominal pain. She denies dysuria or frequency. She does not wear oxygen at home. The patient denies having any recent visits to her family doctor. ROS: See above HPI for pertinent positives & negatives. A total of 10 systems reviewed and were otherwise negative. PAST MEDICAL HISTORY: See Below PAST SURGICAL HISTORY: See Below FAMILY HISTORY: See Below SOCIAL HISTORY: See Below HOME MEDICATIONS: See Below ALLERGIES: See Below VITALS: See Below PHYSICAL EXAMINATION: GENERAL: The patient is awake and alert. She is somewhat anxious. EYES: The conjunctivae are clear. The pupils are round and reactive. EARS, NOSE, MOUTH AND THROAT: The nose is without any evidence of any deformity. NECK: The neck is nontender and supple. RESPIRATORY: Diminished breath sounds are noted throughout. X-ray wheezing was noted both upper lung haddad. There is conversational dyspnea appreciated. CARDIOVASCULAR: Regular rate and rhythm noted there no murmurs rubs or gallops normal S1 normal S2. GASTROINTESTINAL: The abdomen is soft. Abdomen is nontender. MUSCULOSKELETAL/EXTREMITIES: There is no evidence of gross deformity full range of motion is noted in the hips and shoulders. SKIN: There is no obvious evidence of any rash. There are no petechiae, pallor or cyanosis noted. NEUROLOGIC: Patient is awake alert and oriented x3 MEDICAL DECISION MAKING: Patient is an 82-year-old female who presented to the emergency department for an evaluation of difficulty breathing. The patient was found to be hypoxic initially. She was placed on supple oxygen. She has a history of COPD. She was treated with bronchodilator therapy as well as IV steroids. She was also started on a course of antibiotics. She did have a low-grade fever. I do feel her presentation could be consistent with an infectious process such as the flu or COVID but the patient refused the swab. I discussed the patient's condition with the on-call [facility] hospitalist. They have agreed to evaluate the patient in the emergency department for further management and disposition. Triage Nursing notes reviewed. Prior medical records reviewed Vital Signs: reviewed and remarkable for initial hypoxia and fever. Differential diagnosis: Viral syndrome, otitis, pharyngitis, pneumonia, influenza, meningitis, urinary tract infection, sepsis, bacteremia, as well as other pathologies. ER treatment provided: See below Diagnostics interpreted by me: ECG: EKG was obtained in the emergency department. My interpretation is sinus tachycardia at 109 bpm. There is no ectopy. There is no acute ST segment abnormalities noted. This was compared to a tracing from July 26, 2020. No specific changes were noted. Cardiac Monitoring: An order was placed for continuous cardiac monitoring. The monitor shows a rate of 89 bpm with sinus rhythm. Laboratory studies: As stated above and show below. Imaging studies: See below. Radiographic imaging was reviewed by myself Consultation(s): [facility] hospitalist, Dr. Perry was notified about the patient. Past Med/Surg History Medical History Hyponatremia Cholelithiasis Kidney stone Cough Acute dehydration Acute hyperkalemia KIANNA (acute kidney injury) Hyperlipidemia started pt on 10mg atorva s/p last BW Obesity (BMI 30.0-34.9) Hypertension Surgical History History of wisdom tooth extraction History of tonsillectomy Family History Brother Alcohol abuse Sister Hypertension Breast cancer Colorectal cancer Mother Ovarian cancer Denies family history of Prostate cancer Myocardial infarction Social History Smoking Status: Former smoker Tobacco Type: Cigarettes packs per day: 40; Second Hand Exposure: No; Do You Dip or Chew Tobacco: No; Hx Alcohol Use: Yes ("once in awhile") Alcohol type: wine and hard liquor Hx Substance Use: No Preferred Language: Sudanese Communication Ability: Effective Burial Vault Maker Required: No Beliefs That Will Affect Care: None marital status: Current Living Situation: Spouse and Family Current Living Situation Comment: Lives with daughter current occupational status: retired How many Children do You have: 5 Feels Safe at Home: Yes Childhood Exposure to Second-Hand Smoke: Yes Diet: regular caffeine: Yes Dental Care, Regularly: No Physical Activity Frequency: Daily Seatbelt Use: always Sunscreen Use: No Assistive Devices: Glasses Allergies Allergies Allergy/AdvReac Type Severity Reaction Status Date / Time hydrochlorothiazide AdvReac Unknown Verified 05/05/23 21:52 Home Meds Home Medications Medication Instructions Recorded Confirmed multivitamin 1 tab PO DAILY 01/02/19 05/05/23 albuterol sulfate 90 mcg/actuation 2 puff inhalation QID PRN 07/26/20 05/05/23 aerosol inhaler Shortness Of Breath Or Wheezing acetaminophen 650 mg 650 - 1,300 mg PO Q12H PRN Pain 05/05/23 05/05/23 tablet,extended release (Tylenol Arthritis Pain) cholecalciferol (vitamin D3) 125 125 mcg PO DAILY 05/05/23 05/05/23 mcg (5,000 unit) tablet (Vitamin D3) Previous Rx's Medication Instructions Recorded fluticasone 250 mcg-salmeterol 50 1 ea inhalation BID #60 ea 01/04/23 mcg/dose blistr powdr for inhalation Results & Data (ED) Vital Signs Vital Signs - 24 hr 05/05/23 18:58 05/05/23 19:27 05/05/23 19:27 Temperature 39.4 C H Temperature Source Oral Pulse Rate 111 H Pulse Rate [Apical] 106 H Respiratory Rate 18 20 Respiratory Effort / Characteristics Non-Labored Spontaneous Non-Labored Respiratory Depth Normal Normal Respiratory Pattern Regular Blood Pressure 151/81 H Blood Pressure [Right Arm] 180/95 H Blood Pressure Mean 104 Blood Pressure Mean [Right Arm] 123 Blood Pressure Position Sitting Pulse Oximetry 82 L 96 97 Oxygen Delivery Method Room Air Nasal Cannula Nasal Cannula Oxygen Flow Rate 2 2 Sepsis Recent Fever Within 48 Hours Yes Sepsis New/Unexplained Change in Mental Status N/A Sepsis Action Taken by Nursing Physician Notified 05/05/23 19:29 05/05/23 19:37 05/05/23 19:52 Temperature Temperature Source Pulse Rate 101 H Pulse Rate [Apical] 106 H 98 H Respiratory Rate 22 20 Respiratory Effort / Characteristics Non-Labored Respiratory Depth Normal Normal Respiratory Pattern Blood Pressure Blood Pressure [Right Arm] 152/73 H 149/73 H Blood Pressure Mean Blood Pressure Mean [Right Arm] 99 98 Blood Pressure Position Pulse Oximetry 97 97 Oxygen Delivery Method Nasal Cannula Nasal Cannula Oxygen Flow Rate 2 2 Sepsis Recent Fever Within 48 Hours Sepsis New/Unexplained Change in Mental Status Sepsis Action Taken by Nursing 05/05/23 20:07 05/05/23 20:15 05/05/23 20:30 Temperature 37.7 C H Temperature Source Oral Pulse Rate Pulse Rate [Apical] 96 H 93 H Respiratory Rate 20 20 Respiratory Effort / Characteristics Non-Labored Non-Labored Respiratory Depth Normal Normal Respiratory Pattern Blood Pressure Blood Pressure [Right Arm] 137/64 118/55 L Blood Pressure Mean Blood Pressure Mean [Right Arm] 88 76 Blood Pressure Position Pulse Oximetry 97 97 Oxygen Delivery Method Nasal Cannula Nasal Cannula Oxygen Flow Rate 2 2 Sepsis Recent Fever Within 48 Hours Sepsis New/Unexplained Change in Mental Status Sepsis Action Taken by Nursing 05/05/23 20:45 05/05/23 21:00 05/05/23 21:15 Temperature Temperature Source Pulse Rate Pulse Rate [Apical] 87 87 90 Respiratory Rate 18 20 20 Respiratory Effort / Characteristics Non-Labored Non-Labored Respiratory Depth Normal Normal Respiratory Pattern Blood Pressure Blood Pressure [Right Arm] 120/56 L 120/56 L Blood Pressure Mean Blood Pressure Mean [Right Arm] 77 77 Blood Pressure Position Pulse Oximetry 97 97 97 Oxygen Delivery Method Nasal Cannula Nasal Cannula Nasal Cannula Oxygen Flow Rate 2 2 2 Sepsis Recent Fever Within 48 Hours Sepsis New/Unexplained Change in Mental Status Sepsis Action Taken by Nursing 05/05/23 21:34 Temperature Temperature Source Pulse Rate Pulse Rate [Apical] 89 Respiratory Rate 20 Respiratory Effort / Characteristics Non-Labored Respiratory Depth Normal Respiratory Pattern Blood Pressure Blood Pressure [Right Arm] 127/67 Blood Pressure Mean Blood Pressure Mean [Right Arm] 87 Blood Pressure Position Pulse Oximetry 97 Oxygen Delivery Method Nasal Cannula Oxygen Flow Rate 2 Sepsis Recent Fever Within 48 Hours Sepsis New/Unexplained Change in Mental Status Sepsis Action Taken by [facility] Medications Current Medication List: was personally reviewed by me Laboratory Data Attestation: I reviewed the patient's lab results. 05/05/23 19:16 05/05/23 19:16 Lab Results 05/05/23 05/05/23 Range/Units 19:16 19:20 WBC 8.75 (4.8-10.8) K/ul RBC 5.27 (4.20-5.40) M/uL Hgb 14.5 (12.0-16.0) g/dl Hct 44.6 (37.0-47.0) % MCV 84.6 (80.0-100.0) fL MCH 27.5 (25.0-34.0) pg MCHC 32.5 (32.0-36.0) g/dL RDW Std Deviation 42.5 (36.4-46.3) fL RDW Coeff of Ezio 13.9 (11.5-14.5) % Plt Count 210 (130-400) K/uL MPV 9.6 (9.4-12.4) fL Immature Gran % (Auto) 0.7 % Neut % (Auto) 82.6 % Lymph % (Auto) 6.9 % [place] % (Auto) 9.5 % Eos % (Auto) 0.1 % Baso % (Auto) 0.2 % Neut # (Auto) 7.23 H (1.40-6.50) K/uL Lymph # (Auto) 0.60 L (1.20-3.40) K/uL [place] # (Auto) 0.83 H (0.11-0.59) K/uL Eos # (Auto) 0.01 (0.00-0.50) K/uL Baso # (Auto) 0.02 (0.00-0.20) K/uL Immature Gran # (Auto) 0.06 (0.01-0.20) K/uL PT 10.6 (9.0-12.0) Seconds INR 1.0 (0.9-1.1) APTT 30 (21-31) Seconds PTT Ratio 1.1 VBG pH 7.46 H (7.36-7.41) VBG pCO2 42 (38-50) mmHg VBG pO2 55 mmHg VBG HCO3 30 mmol/L VBG O2 Saturation 88.1 % VBG Base Excess 5.4 mEq/L Sodium 135 L (136-145) mmol/L Potassium 4.4 (3.5-5.1) mmol/L Chloride 99 (98-107) mmol/L Carbon Dioxide 27 (21-32) mmol/L Anion Gap 9 (3-11) BUN 14 (6-23) mg/dl Creatinine 0.92 (0.6-1.2) mg/dl Est Cr Clr Drug Dosing 44.4 ml/min Est GFR ( Amer) 66.7 ml/min Est GFR (Non-Af Amer) 57.6 ml/min BUN/Creatinine Ratio 15.2 (10-20) Glucose 103 H (70-99(Fasting)) mg/dl Lactate 0.9 (0.4-2.0) mmol/L Calcium 8.9 (8.6-10.3) mg/dl Magnesium 1.8 (1.7-2.4) mg/dl Total Bilirubin 0.7 (0.2-1.0) mg/dl Direct Bilirubin 0.0 (0-0.2) mg/dl AST 27 (13-39) U/L ALT 15 (7-52) U/L Alkaline Phosphatase 79 (34-104) U/L Troponin I High Sens 10.8 (0-14) pg/ml Total Protein 7.7 (6.0-8.3) gm/dl Albumin 3.9 (3.4-5.0) gm/dl Procalcitonin 0.06 (0-0.5) ng/ml Administered Medications Discontinued Medications Acetaminophen (Acetaminophen 500 Mg Tab) 1,000 mg PO NOW STA Stop: 05/05/23 19:30 Last Admin: 05/05/23 19:33 Dose: 1,000 mg Documented By: AEF Albuterol (Albut/Ipratrop 3mg/0.5mg Neb 3 Ml Vial) 3 ml NEB NOW STA; Protocol Stop: 05/05/23 19:30 Last Admin: 05/05/23 19:33 Dose: 3 ml Documented By: AEF Dexamethasone Sodium Phosphate (DexamethasonePf 10 Mg/Ml Vial) 10 mg IV NOW ONE Stop: 05/05/23 19:30 Last Admin: 05/05/23 19:33 Dose: 10 mg Documented By: AEF Sodium Chloride (Nss) 1,000 mls @ 999 mls/hr IV .Q1H1M ONE Stop: 05/05/23 22:20 Last Admin: 05/05/23 21:31 Dose: 999 mls/hr Documented By: EPHRAIMF Ceftriaxone Sodium (Rocephin) 2,000 mg in 50 mls @ 100 mls/hr IV NOW STA Stop: 05/05/23 21:49 Last Admin: 05/05/23 21:31 Dose: 100 mls/hr Documented By: EVANS Imaging Data Attestation: I personally reviewed and interpreted this imaging study as follows: My Impression: 1 view chest x-ray was obtained in the emergency department. My interpretation is no definite infiltrate or free air, bullous disease was noted in the right lung field, there is bilateral atelectasis noted, this was compared to a chest x-ray from July 26, 2020. No significant changes were noted. Final report pending Discharge Plan Visit Data Chief Complaint: Hypertension Stated Complaint: HIGH BLOOD PRESSURE AND PULSE OX ED Provider: Frank Lopez Discharge Problem: Acute exacerbation of chronic obstructive pulmonary disease, Hypoxia, Acute bronchitis Patient Disposition: Being Evaluated by Hospitalist Forms Stand Alone Forms: My [facility] Prescriptions Prescriptions: No Action fluticasone propion-salmeterol 250-50 mcg/dose blister with device 1 ea INHALATION BID Qty: 60 3RF Rx Instructions: ordered 07/26/20 multivitamin tablet 1 tab PO DAILY albuterol sulfate 90 mcg/actuation Hfa Aerosol Inhaler 2 puff INHALATION QID PRN (Reason: Shortness Of Breath Or Wheezing) acetaminophen [Tylenol Arthritis Pain] 650 mg Tablet Extended Release 650 - 1,300 mg PO Q12H PRN (Reason: Pain) cholecalciferol (vitamin D3) [Vitamin D3] 125 mcg (5,000 unit) Tablet 125 mcg PO DAILY Rx Instructions: With k Referrals Referrals: Nicolette Childs MD [Primary Care Provider] - Discharge Problem: Acute bronchitis Qualifiers: Bronchitis organism: unspecified organism Qualified Code(s): J20.9 - Acute bronchitis, unspecified
[2023-05-05] MEDS: ACETAMINOPHEN 500 MG TAB PO STA (19:33)
[2023-05-05] MEDS: ALBUT/IPRATROP 3MG/0.5MG NEB 3 ML VIAL NEB STA (19:33)
[2023-05-05] MEDS: dexAMETHasone**PF** 10 MG/ML VIAL IV ONE (19:33)
[2023-05-05 19:35] LABS: Base Excess VBG 5.4 mEq/L; HCO3 VBG 30 mmol/L; Oxygen Saturation VBG 88.1 %; PCO2 VBG 42 mmHg (38-50); PO2 VBG 55 mmHg; pH VBG 7.46 (7.36-7.41)
[2023-05-05 19:43] LABS: Basophils # (auto) 0.02 K/uL (0.00-0.20); Basophils % (auto) 0.2 %; Eosinophils # (auto) 0.01 K/uL (0.00-0.50); Eosinophils % (auto) 0.1 %; Hematocrit (blood only) 44.6 % (37.0-47.0); Hemoglobin 14.5 g/dl (12.0-16.0); Immature Granulocytes # (auto) 0.06 K/uL (0.01-0.20); Immature Granulocytes % (auto) 0.7 %; Lymphocytes % (auto) 6.9 %; Mean Corpuscular Hemoglobin 27.5 pg (25.0-34.0); Mean Corpuscular Hgb Conc 32.5 g/dL (32.0-36.0); Mean Corpuscular Volume 84.6 fL (80.0-100.0); Mean Platelet Volume 9.6 fL (9.4-12.4); Monocytes # (auto) 0.83 K/uL (0.11-0.59); Monocytes % (auto) 9.5 %; Neutrophils # (auto) 7.23 K/uL (1.40-6.50); Neutrophils % (auto) 82.6 %; Platelet Count 210 K/uL (130-400); RDW Coefficient of Variation 13.9 % (11.5-14.5); RDW Standard Deviation 42.5 fL (36.4-46.3); Red Blood Count 5.27 M/uL (4.20-5.40); White Blood Count 8.75 K/ul (4.8-10.8)
[2023-05-05 20:01] LABS: Albumin Level 3.9 gm/dl (3.4-5.0); BUN Creatinine Ratio 15.2 (10-20); Bilirubin,Total 0.7 mg/dl (0.2-1.0); Calcium 8.9 mg/dl (8.6-10.3); Creatinine Clr Calc Pharmacy 44.4 ml/min; Est GFR (African American) 66.7 ml/min; Est GFR (Non-African American) 57.6 ml/min; Magnesium 1.8 mg/dl (1.7-2.4); Potassium 4.4 mmol/L (3.5-5.1); Total Protein 7.7 gm/dl (6.0-8.3)
[2023-05-05 20:05] LABS: Troponin I High Sensitivity 10.8 pg/ml (0-14)
[2023-05-05 20:10] LABS: Partial Thromboplastin Ratio 1.1; Partial Thromboplastin Time 30 Seconds (21-31); Prothrombin Time 10.6 Seconds (9.0-12.0)
[2023-05-05] MEDS: cefTRIAXone SODIUM 2,000 MG/50 ML BAG IV STA (21:31)
[2023-05-05] MEDS: SODIUM CHLORIDE 0.9% 1,000 ML IV ONE (21:31)
--- NOTE | 2023-05-05 21:43 | History & Physical Report ---
Date of Service May 05, 2023 Assessment & Plan (1) Acute exacerbation of chronic obstructive pulmonary disease: Plan: Worsening LEE since Tuesday 05/02 Hypoxic at 82% on RA on arrival Patient declined nasopharyngeal testing/COVID, RSV, flu testing on arrival; discussed risks/benefits with patient at the bedside, and she does not want any nasal swabs EKG revealed sinus tachycardia at 109bpm; QTc 430 D-dimer elevated at 880 Chest CTA ordered, pending CXR is emphysematous with flattened diaphragms; might exhibit RML infiltrate Troponin WNL Procalcitonin WNL No leukocytosis VB.46/42/55/30 Flutter valve Incentive spirometry Guaifenesin 600 mg p.o. q12h DuoNeb 3 mL q6r Continue home Advair discus A.m. CBC, BMP (2) Fever: Plan: Patient was febrile at 39.4 C in the ED Blood culture ordered, pending Rocephin given in the ED Given no leukocytosis and procalcitonin negative will defer further antibiotics at this time Follow blood Cx and adjust regimen as needed Tylenol as needed for fever/pain (3) Hypoxia: Plan: Patient was hypoxic at 82% on ED arrival Titrate supplemental oxygen to maintain SpO2 88-92% Continuous pulse oximetry (4) Hypertension: Plan: Patient not currently on hypertensive medication; monitors at home with a BP cuff, which has been good lately Patient's BP improved after treatment for acute on chronic COPD (5) Type 2 diabetes mellitus: Plan: Patient denies history of T2DM Glucose 103 on arrival Last A1c 5.9% on 07/11/2021 Not currently on medications Regular diet Plan Disposition: Admit to [facility] telemetry Full code Regular diet VTE PPx: Lovenox 40 mg SQ q24h History of Present Illness Chief Complaint: Hypertension, COPD Primary Care Provider: Nicolette Childs MD Daysi is an 82-year-old female with PMH of HTN, HLD, COPD, and T2DM. Patient presented with her daughter for hypertension on 05/05, which daughter reports is often been associated with hyperkalemia. K 4.4 on arrival. However, patient notes that she has been having worsening LEE that started on Wednesday night 05/02. History of COPD exacerbation. Patient denies SOB at rest or when lying flat. Patient does not use supplemental oxygen at home. She does have a blood pressure cuff which she checks regularly, as well as a pulse ox. Patient's daughter reports that her pulse ox at home read 113 bpm, and 96% on RA while sitting. Patient also notes that she had 1 episode of fever and a sinus headache at home, for which she took Tylenol. Patient took her regular morning medications, including her inhaler. She notes she is a former tobacco cigarette smoker that quit 15 years ago. No recent alcohol use. She denies history of diabetes. She notes that the white on her tongue has been present for many years. She denies history of DVT/PE. No sick contacts. She did not get her flu or COVID shots this year. Patient is febrile at 39.4 C at time of admission; SpO2 97% on 2L NC while resting. ED course: Acetaminophen 1000 mg IV DuoNeb 3 mL NSS 1000 L IV Rocephin 2000 mg IV Dexamethasone 10 mg ROS: Patient endorses fever, chills, productive cough (clear), diarrhea x 1 episode, suprapubic pressure, occassional numbness/tingling in hands. Patient denies nighsweats, body aches, chest pain, pleuritic CP, hemoptysis, abdominal pain, nausea, vomiting, burning with urination, urinary s/s, or N/T in legs. Allergies Allergy/AdvReac Type Severity Reaction Status Date / Time hydrochlorothiazide AdvReac Unknown Verified 05/05/23 21:52 Home Medications Medication Instructions Recorded Confirmed Type multivitamin 1 tab PO DAILY 01/02/19 05/05/23 History albuterol sulfate 90 mcg/actuation 2 puff inhalation QID PRN 07/26/20 05/05/23 History aerosol inhaler Shortness Of Breath Or Wheezing fluticasone 250 mcg-salmeterol 50 1 ea inhalation BID #60 ea 01/04/23 05/05/23 Rx mcg/dose blistr powdr for inhalation acetaminophen 650 mg 650 - 1,300 mg PO Q12H PRN Pain 05/05/23 05/05/23 History tablet,extended release (Tylenol Arthritis Pain) cholecalciferol (vitamin D3) 125 125 mcg PO DAILY 05/05/23 05/05/23 History mcg (5,000 unit) tablet (Vitamin D3) Past Med/Surg History Medical History Hyponatremia Cholelithiasis Kidney stone Cough Acute dehydration Acute hyperkalemia KIANNA (acute kidney injury) Hyperlipidemia started pt on 10mg atorva s/p last BW Obesity (BMI 30.0-34.9) Hypertension Surgical History History of wisdom tooth extraction History of tonsillectomy Family History Brother Alcohol abuse Sister Hypertension Breast cancer Colorectal cancer Mother Ovarian cancer Denies family history of Prostate cancer Myocardial infarction Social History Smoking Status: Former smoker Tobacco Type: Cigarettes packs per day: 40; Second Hand Exposure: Yes; Do You Dip or Chew Tobacco: No; Hx Alcohol Use: No Hx Substance Use: No Preferred Language: Pakistani Communication Ability: Effective Ict Programmer Required: No Beliefs That Will Affect Care: None marital status: Current Living Situation: Family Current Living Situation Comment: Lives with daughter current occupational status: retired How many Children do You have: 5 Feels Safe at Home: Yes Safety Concerns: Feels Safe At This Time Childhood Exposure to Second-Hand Smoke: Yes Diet: regular caffeine: Yes Dental Care, Regularly: No Physical Activity Frequency: Daily Seatbelt Use: always Sunscreen Use: No Assistive Devices: Glasses Review of Systems Review of Systems: See HPI above Physical Exam Physical Exam: General: no acute distress; pleasant affect; non-toxic appearing; well- nourished; cooperative; SpO2 97% on 2L NC while resting; patient's SpO2 dropped to 86% with good waveforms on RA while standing HEENT: normocephalic, atraumatic; no scleral icterus; PERRLA; moist mucus membrane, with white tongue; vision and hearing intact Neck: supple; no lymphadenopathy; trachea midline Skin: warm, dry without signs of tenting; no cyanosis; no rashes, bruising, lesions, or erythema noted CV: chest wall NTP; RRR; S1/S2 normal; no murmurs/rubs/gallops; pulses intact and symmetric at radial, DP, and PT Lungs: no acute respiratory distress; symmetrical chest wall expansion; diminished breath sounds across all lung haddad w/o adventitious sounds; no wheezing ABD: Soft, NTP; BS present; no rebound/guarding; no ascites; no distention; negative CVA tenderness MSK: no tics or fasciculations; no edema noted in the LEs b/l, nonerythematous Neuro: A&Ox3; normal mood and affect; fluent speech; no focal deficits; sensation grossly intact in the LEs b/l Results & Data Results & Data Vital Signs (Past 12 Hours) Vital Signs Temp Pulse Pulse Resp BP BP Pulse Ox 05/05/23 21:34 89 20 127/67 97 05/05/23 21:15 90 20 120/56 L 97 05/05/23 21:00 87 20 120/56 L 97 05/05/23 20:45 87 18 97 05/05/23 20:30 93 H 20 118/55 L 97 05/05/23 20:15 37.7 C H 05/05/23 20:07 96 H 20 137/64 97 05/05/23 19:52 98 H 20 149/73 H 97 05/05/23 19:37 106 H 22 152/73 H 97 05/05/23 19:29 101 H 05/05/23 19:27 97 05/05/23 19:27 106 H 20 180/95 H 96 05/05/23 18:58 39.4 C H 111 H 18 151/81 H 82 L O2 Del Method O2 Flow Rate 05/05/23 21:34 Nasal Cannula 2 05/05/23 21:15 Nasal Cannula 2 05/05/23 21:00 Nasal Cannula 2 05/05/23 20:45 Nasal Cannula 2 05/05/23 20:30 Nasal Cannula 2 05/05/23 20:15 05/05/23 20:07 Nasal Cannula 2 05/05/23 19:52 Nasal Cannula 2 05/05/23 19:37 Nasal Cannula 2 05/05/23 19:29 05/05/23 19:27 Nasal Cannula 2 05/05/23 19:27 Nasal Cannula 2 05/05/23 18:58 Room Air Laboratory Results Abnormal lab results 05/05/23 05/05/23 Range/Units 19:16 19:20 Neut # (Auto) 7.23 H (1.40-6.50) K/uL Lymph # (Auto) 0.60 L (1.20-3.40) K/uL [place] # (Auto) 0.83 H (0.11-0.59) K/uL VBG pH 7.46 H (7.36-7.41) Sodium 135 L (136-145) mmol/L Glucose 103 H (70-99(Fasting)) mg/dl Code Status & VTE Plan Code Status Full code VTE Prophylaxis Plan VTE Prophylaxis will be ordered: Yes Supervising Physician Co-Signing Physician Notes Attending addendum: I have physically seen this patient, have supervised the JHOAN's activities, and agree with the H&P unless as otherwise noted. Assessment and Plan: COPD exacerbation/acute respiratory failure with hypoxia- CTA chest PE protocol is negative for PE Does suggest bronchitis Patient received dexamethasone 10 mg IV and ceftriaxone 2 g IV from the ED with a DuoNeb treatment Continue Breo Ellipta 1 inhalation daily Duonebs every 4 hours while awake and every 2 hours when necessary. Guaifenesin extended release 600 mg p.o. twice daily Methylprednisolone 40 mg IV every 8 hours Patient's pulse oximetry was initially 82% on room air Titrate nasal cannula oxygen to keep pulse ox in the 92-94% range Azithromycin 500 mg IV daily PG Care Time/CCT Total # of Minutes Spent Total Time Spent with Patient: Total time spent is greater than 50% in coordination of care (as documented) at patient's floor/unit and/or counseling patient: C[place] [address] INT INP/OBS CARE 2/55MIN Patient Type Established Medical Decision Making Low Complexity Diagnoses Acute exacerbation of chronic obstructive pulmonary disease J44.1 Fever R50.9 Hypoxia R09.02 Essential hypertension I10 Hypertension type: essential hypertension Type 2 diabetes mellitus E11.9 (4) Hypertension Hypertension type: essential hypertension Qualified Code(s): I10 - Essential (primary) hypertension
[2023-05-05] MEDS ORDERED: ACETAMINOPHEN 325 MG TAB PO PRN (22:41)
[2023-05-05] MEDS ORDERED: ONDANSETRON INJ 2 MG/ML 2 ML VIAL IV PRN (22:41)
[2023-05-05 23:13] VITALS: TEMP 99
[2023-05-05 23:14] LABS: D Dimer 830 ug/L FEU (0-500)
[2023-05-06] MEDS: ALBUT/IPRATROP 3MG/0.5MG NEB 3 ML VIAL INH SCH (01:46)
[2023-05-06] MEDS: OPTIRAY 320 125ml IV ONE (01:48)
--- NOTE | 2023-05-06 03:08 | CT Scan Report ---
Exam(s): CTA CHEST IV Amt: 116 ML OPTIRAY 320 EXAM: CT Angiography Chest With Intravenous Contrast CLINICAL HISTORY: Reason for exam: PE, elevated D-dimer. TECHNIQUE: Axial computed tomographic angiography images of the chest with intravenous contrast. CTDI is 25.5 mGy and DLP is 759.76 mGy-cm. Automated exposure control was utilized for the study. A dose lowering technique was utilized adhering to the principles of ALARA. MIP reconstructed images were created and reviewed. COMPARISON: Chest x-ray from May 05, 2023 FINDINGS: Pulmonary arteries: The pulmonary arterial tree is well opacified with contrast. There is mild motion artifact blurring the lower lobe branches bilaterally. No pulmonary embolism is identified. Aorta: The thoracic aorta is mildly calcified but nondilated. There is no aneurysm or dissection. Lungs: There are mild emphysematous changes in both lungs with bulla in the right upper hemithorax measuring 8.6 x 3.1 cm anteromedially and 4. 8 cm along the major fissure. Slight bronchial wall thickening suggest bronchitis. No acute focal airspace infiltrate is seen. No pneumothorax or pleural effusion. No mass. Pleural space: Unremarkable. No significant effusion. No pneumothorax. Heart: Mild cardiomegaly and moderate coronary calcification. No pericardial effusion. No evidence of RV dysfunction. Bones/joints: Osteopenia and mild to moderate multilevel degenerative changes throughout the spine. No acute fracture or destructive bone lesion is identified. No dislocation. Soft tissues: Unremarkable. Lymph nodes: Unremarkable. No enlarged lymph nodes. IMPRESSION: 1. There are mild emphysematous changes in both lungs with bulla in the right upper hemithorax measuring 8.6 x 3.1 cm anteromedially and 4.8 cm along the major fissure. Slight bronchial wall thickening suggest bronchitis. No acute focal airspace infiltrate is seen. No pneumothorax or pleural effusion. 2. The pulmonary arterial tree is well opacified with contrast. There is mild motion artifact blurring the lower lobe branches bilaterally. No pulmonary embolism is identified. 3. The thoracic aorta is mildly calcified but nondilated. There is no aneurysm or dissection. Electronically signed by: Polo Perez MD 05/06/23 02:31 AM
[2023-05-06 04:09] LABS: Hematocrit (blood only) 40.4 % (37.0-47.0); Hemoglobin 13.3 g/dl (12.0-16.0); Mean Corpuscular Hemoglobin 27.4 pg (25.0-34.0); Mean Corpuscular Hgb Conc 32.9 g/dL (32.0-36.0); Mean Corpuscular Volume 83.3 fL (80.0-100.0); Mean Platelet Volume 9.7 fL (9.4-12.4); Platelet Count 197 K/uL (130-400); RDW Coefficient of Variation 13.8 % (11.5-14.5); RDW Standard Deviation 41.6 fL (36.4-46.3); Red Blood Count 4.85 M/uL (4.20-5.40); White Blood Count 5.85 K/ul (4.8-10.8)
[2023-05-06 04:26] LABS: BUN Creatinine Ratio 20.4 (10-20); Calcium 8.2 mg/dl (8.6-10.3); Creatinine Clr Calc Pharmacy 43.9 ml/min; Est GFR (African American) 65.9 ml/min; Est GFR (Non-African American) 56.8 ml/min; Potassium 4.1 mmol/L (3.5-5.1)
[2023-05-06 05:02] LABS: Basophils # (auto) 0.01 K/uL (0.00-0.20); Basophils % (auto) 0.2 %; Immature Granulocytes # (auto) 0.03 K/uL (0.01-0.20); Immature Granulocytes % (auto) 0.5 %; Lymphocytes # (auto) 0.31 K/uL (1.20-3.40); Lymphocytes % (auto) 5.3 %; Monocytes # (auto) 0.11 K/uL (0.11-0.59); Monocytes % (auto) 1.9 %; Neutrophils # (auto) 5.39 K/uL (1.40-6.50); Neutrophils % (auto) 92.1 %; RBC Morphology Unremarkable
[2023-05-06] MEDS: AZITHROMYCIN 500 MG in DEXTROSE 5% 250 ML IV SCH (05:06)
[2023-05-06] MEDS: methylPREDNISolone 40 MG in SYRINGE 0 ML IV SCH (06:04)
--- NOTE | 2023-05-06 07:10 | XRay Report ---
XR chest 1V portable CLINICAL HISTORY: Sepsis. COMPARISON STUDY: Chest radiograph July 26, 2020. FINDINGS: There is no pneumothorax or pleural effusion. Emphysema is present. No consolidation is elfego ntified and there is no evidence for pulmonary edema. A round lucency projecting of the right upper l shasta may reflect a bulla. Cardiomediastinal silhouette is unremarkable. IMPRESSION: No acute cardiopulmonary findings. Emphysema. ACT 112: Negative or not required by law. Electronically signed by: Vic Auguste M.D. 05/06/2023 7:09 AM
[2023-05-06] MEDS: FLUTICASONE/VILANTEROL 200/25MCG 14 PUFFS/INHALER INH SCH (08:18)
[2023-05-06] MEDS: ENOXAPARIN INJ 40 MG/0.4 ML SYR SQ SCH (08:19)
[2023-05-06] MEDS: guaiFENesin 600 MG TABCR PO SCH (08:19)
--- NOTE | 2023-05-06 13:02 | Electrocardiogram Report ---
Test Reason : Blood Pressure : / mmHG Vent. Rate : 109 BPM Atrial Rate : 109 BPM P-R Int : 140 ms QRS Dur : 072 ms QT Int : 320 ms P-R-T Axes : 062 029 076 degrees QTc Int : 430 ms Sinus tachycardia Otherwise normal ECG When compared with ECG of 26-JUL-2020 19:10, No significant change was found Confirmed by Frank Stanton ([id number]) on 05/06/2023 1:02:29 PM Referred By: REFERRED SELF Confirmed By:Frank Stanton
--- NOTE | 2023-05-06 16:14 | Discharge Summary ---
Discharge Summary Date of Service May 06, 2023 Notes For Next Care Provider Medication Changes From Visit Prednisone 40mg daily x 1 day then decrease by 10mg daily until gone azithromycin 250mg po daily x 4 more days Admission HPI Per Admitting Provider Daysi is an 82-year-old female with PMH of HTN, HLD, COPD, and T2DM. Patient presented with her daughter for hypertension on 05/05, which daughter reports is often been associated with hyperkalemia. K 4.4 on arrival. However, patient notes that she has been having worsening LEE that started on Wednesday night 05/02. History of COPD exacerbation. Patient denies SOB at rest or when lying flat. Patient does not use supplemental oxygen at home. She does have a blood pressure cuff which she checks regularly, as well as a pulse ox. Patient's daughter reports that her pulse ox at home read 113 bpm, and 96% on RA while sitting. Patient also notes that she had 1 episode of fever and a sinus headache at home, for which she took Tylenol. Patient took her regular morning medications, including her inhaler. She notes she is a former tobacco cigarette smoker that quit 15 years ago. No recent alcohol use. She denies history of diabetes. She notes that the white on her tongue has been present for many years. She denies history of DVT/PE. No sick contacts. She did not get her flu or COVID shots this year. Patient is febrile at 39.4 C at time of admission; SpO2 97% on 2L NC while resting. ED course: Acetaminophen 1000 mg IV DuoNeb 3 mL NSS 1000 L IV Rocephin 2000 mg IV Dexamethasone 10 mg ROS: Patient endorses fever, chills, productive cough (clear), diarrhea x 1 episode, suprapubic pressure, occassional numbness/tingling in hands. Patient denies nighsweats, body aches, chest pain, pleuritic CP, hemoptysis, abdominal pain, nausea, vomiting, burning with urination, urinary s/s, or N/T in legs. Principal Dx & Hospital Course #1 = Principal Diagnosis (1) Acute exacerbation of chronic obstructive pulmonary disease: Worsening LEE since Tuesday 05/02 Hypoxic at 82% on RA on arrival Patient declined nasopharyngeal testing/COVID, RSV, flu testing on arrival; discussed risks/benefits with patient at the bedside, and she does not want any nasal swabs EKG revealed sinus tachycardia at 109bpm; QTc 430 D-dimer elevated at 880,Chest CTA neg for PE, shows bullae and bronchitis, no PNA Troponin WNL,Procalcitonin WNL,No leukocytosis,VB.46/42/55/30 Treated with IV steroids, azithro, nebs, Flutter valve,Guaifenesin 600 mg p.o. q12h Had significant improvement, felt great and was anxious to go home Two step walk test showed needs O2 2LNC at rest and 6LNC with exertion Dc to home with prednisone taper, finish out Z-pack, supplemental O2 provided will refer to PULM for COPD (2) Fever: Patient was febrile at 39.4 C in the ED Blood culture NGTD at time of discharge but procal negative, no PNA, suspect influenza but she declined testing supportive care (3) Hypoxia: Patient was hypoxic at 82% on ED arrival CTA Chest neg for PE as above, needs home O2 (4) Type 2 diabetes mellitus: Patient denies history of T2DM Glucose 103 on arrival Last A1c 5.9% on 07/11/2021 Not currently on medications Plan Disposition: dc to home, discussed care with Production Supervisor Trainee, daughter at bedside VTE PPx: Lovenox 40 mg SQ q24h Discharge Exam Constitutional WD/WN, vitals as above Respiratory normal respiratory effort Auscultation: lungs clear to auscultation bilaterally and + diminished lung sounds (throughout); no wheezes Cardiovascular RRR, no murmur, no edema Psychiatric A+Ox3, euthymic affect Updated Medication List Medication Instructions Recorded Confirmed Type multivitamin 1 tab PO DAILY 01/02/19 05/05/23 History albuterol sulfate 90 mcg/actuation 2 puff inhalation QID PRN 07/26/20 05/05/23 History aerosol inhaler Shortness Of Breath Or Wheezing fluticasone 250 mcg-salmeterol 50 1 ea inhalation BID #60 ea 01/04/23 05/05/23 Rx mcg/dose blistr powdr for inhalation acetaminophen 650 mg 650 - 1,300 mg PO Q12H PRN Pain 05/05/23 05/05/23 History tablet,extended release (Tylenol Arthritis Pain) cholecalciferol (vitamin D3) 125 125 mcg PO DAILY 05/05/23 05/05/23 History mcg (5,000 unit) tablet (Vitamin D3) azithromycin 250 mg tablet 250 mg PO DAILY 4 days #4 tabs 05/06/23 Rx prednisone 10 mg tablet 40 mg (4 x 10 mg) PO DAILY #10 tabs 05/06/23 Rx Hospital Stay Data Consultations 05/05/23 21:27 ED Decision to Admit Stat Diagnostic Imagining Performed 05/05/23 22:45 CT angio chest PE protocol Urgent Pending Results Patient Have Any Pending Studies at Discharge: Yes (Blood cultures-no growth to date) Discharge Instructions Given to Patient (Per Discharging Provider) Continue the prednisone for 4 more days and the azithromycin for 4 more days. You will need to use 2L of oxygen at rest and 6 L of oxygen with walking. A referral to Pulmonology will be made for you. Total Time Total Time Spent Total Time Spent (In Minutes): 35 min Coding Level of Care Code 21953 INP/OBS DISCH >30 MIN Diagnoses Acute exacerbation of chronic obstructive pulmonary disease J44.1 Fever R50.9 Hypoxia R09.02 Type 2 diabetes mellitus E11.9
[2023-05-06 16:21] VITALS: BP 164/89
[2023-05-06 19:15] VITALS: PULSE 90; RESP 20; O2SAT 84
== END 2023-05-06 17:15 | disposition home or self-care (01) ==
LOC: EDINP 18:47 → ED 18:47 → SUATTDRO 22:27 → EDINP 22:41